=== PATIENT | female | born 1945 | race Caucasian/White ===

== ENCOUNTER → 2022-08-24 14:30 | Outpatient (CLI) | payer MEDICARE, SELFPAY | PROVIDERS: Visit Provider Nurse Practitioner Family | DX: M79.671 Pain in right foot (principal); M79.674 Pain in right toe(s) | CPT/HCPCS: 87102; 87206; 87220 ==

== ENCOUNTER → 2022-08-29 14:02 | Outpatient (CLI) | payer MEDICARE, SELFPAY ==
--- NOTE | 2022-08-29 14:13 | US_ITS ---
FINAL REPORT CLINICAL HISTORY: Decreased pulses in lower extremities. Patient has dementia and had limited cooperation. We were only able to acquire VPR's at the ankle level and pressures at ankle and calves bilaterally. Patient demanded we stop so all testing was ceased. FINDINGS: LOWER EXTREMITY SEGMENTAL PRESSURE MEASUREMENTS Pressure indices are as follows: RIGHT LOWER EXTREMITY: Thigh: Not measured at request of patient. Calf: 1.1 Ankle, posterior tibial artery: 1.0 Ankle, dorsalis pedis: 1.0 Toe: 0.81 Comments: 1.0 LEFT LOWER EXTREMITY: Thigh: Not measured at request of patient. Calf: 1.0 Ankle, posterior tibial artery: 1.0 Ankle, dorsalis pedis: 0.92 Toe: 0.83 Comments: 1.0 Reviewed, Interpreted and Dictated by Donovan Santamaria MD Transcribed by Lorelei Liz Authenticated and [facility]
== END ==
LOC: RT 14:08
PROVIDERS: Visit Provider Nurse Practitioner Family
DX: R09.89 Other specified symptoms and signs involving the circulatory and respiratory systems (principal)
CPT/HCPCS: 93923

== ENCOUNTER 2023-08-20 14:02 | Inpatient (IN) | payer MEDICARE, SELFPAY ==
[2023-08-20 14:14] VITALS: PULSE 90; RESP 20; O2SAT 90; BMI 25.8
--- NOTE | 2023-08-20 14:15 | CT_ITS ---
PROCEDURE INFORMATION: Exam: CT Pelvis Without Contrast; Skeletal Exam date and time: 08/20/2023 2:55 PM Age: 77 years old Clinical indication: Injury or trauma; Fall; Other: Pain; Additional info: Fall, pain in right hip. Patient AMS and unable to move or communicate TECHNIQUE: Imaging protocol: Computed tomography of the pelvis without contrast. Exam focused on the skeleton. Radiation optimization: All CT scans at this facility use at least one of these dose optimization techniques: automated exposure control; mA and/or kV adjustment per patient size (includes targeted exams where dose is matched to clinical indication); or iterative reconstruction. COMPARISON: CT BONY PELVIS 08/20/2023 2:55 PM FINDINGS: Intestine: The rectum is distended 8.4 cm with fecal material consistent with fecal impaction. Urinary bladder: Harper catheter in the bladder Bones/joints: Compression screw in the left femoral neck. Intramedullary chris in the left femur. Contour abnormality in the left inferior pubic ramus (series 5, image 98). Findings consistent with acute nondisplaced fracture.. Displaced subcapital femoral neck fracture of the right hip. Soft tissues: Unremarkable. IMPRESSION: 1. Contour abnormality in the left inferior pubic ramus (series 5, image 98). Findings consistent with acute nondisplaced fracture.. 2. Displaced subcapital femoral neck fracture of the right hip. 3. The rectum is distended 8.4 cm with fecal material consistent with fecal impaction.
--- NOTE | 2023-08-20 14:15 | ED_ITS ---
<Statement entered by Lefty Keller MD - 08/23/23 23:01> I was consulted by the FERNANDO, and we discussed the complexity of the problems being addressed. I approved the treatment and management plan for this patient's care in the emergency department, thus performing a substantive portion of the medical decision making. Lefty Keller MD, LAINE, FACEP Discharge Plan Disposition Patient Disposition: Admitted Condition: Good Prescriptions Prescriptions: No Action Eliquis 5 mg tablet 5 mg PO Patient Comments: TAKE 1 TABLET BY MOUTH TWICE DAILY FOR 30 DAYS furosemide 40 mg tablet PO Patient Comments: TAKE 1 TABLET BY MOUTH ONCE DAILY FOR 30 DAYS cyanocobalamin (vitamin B-12) 1,000 mcg tablet PO Patient Comments: TAKE 1 TABLET BY MOUTH ONCE DAILY spironolactone 25 mg tablet PO Patient Comments: TAKE 1 TABLET BY MOUTH ONCE DAILY FOR 30 DAYS potassium chloride 20 mEq tablet,ER particles/crystals PO Patient Comments: TAKE 1 TABLET BY MOUTH ONCE DAILY WITH FOOD FOR 30 DAYS lansoprazole 30 mg capsule,delayed release(DR/EC) PO Patient Comments: TAKE 1 CAPSULE BY MOUTH ONCE DAILY BEFORE A MEAL FOR 30 DAYS mirtazapine 15 mg tablet PO Patient Comments: TAKE 1 TABLET BY MOUTH ONCE DAILY FOR 30 DAYS oxycodone 5 mg tablet PO Patient Comments: TAKE 1 TABLET BY MOUTH EVERY 6 HOURS NEEDED Referrals Follow up/Referrals: Lonnie Joyner MD [Primary Care Provider] - See instructions Clinical Impressions Clinical Impression: Closed displaced fracture of right femoral neck, Acute hypoxemic respiratory failure Urinary tract infectious disease Qualifiers: Urinary tract infection type: site unspecified Hematuria presence: with hematuria Qualified Code(s): N39.0 - Urinary tract infection, site not specified Discharge ED Provider: Lefty Keller General Adult HPI General Chief complaint: Fall Stated complaint: Rt Hip Pain Time Seen by Provider: 08/20/23 14:06 History of Present Illness HPI narrative: Patient presents via EMS for reported fall. Unfortunately patient has dementia and is a poor historian thus all of the information so far comes from EMS. Reportedly she fell twice yesterday after the second time she injured her right hip. No reports of pain or trauma anywhere else. She did not lose consciousness. Await discussion with family for actual report of events. After son arrived who is her power of workers compensation defense attorney we had interactive discussion regarding events. Patient apparently has a sweet in their home and occasionally forgets to use her walker due to her dementia. She was inside her suite and it was an unwitnessed fall however [id number] arrived immediately after after she heard a thump on the floor. She found patient sitting on her bottom next to her bed with her back against a nightstand. She was unable to get her vertical by herself and son arrived shortly thereafter to assist her back to her lift chair where she spends her nights and where she sleeps. She initially had no complaints. However when they came to get her ready for yazidism this morning she had a lot of pain when attempting to move her right lower extremity thus EMS was called and hence her presentation here. She is a DNR/DNI Related Data Home Medications Medication Instructions Recorded Confirmed apixaban 5 mg tablet (Eliquis) 5 mg PO 12/01/22 12/01/22 cyanocobalamin (vitamin B-12) mcg PO 12/01/22 12/01/22 1,000 mcg tablet furosemide 40 mg tablet mg PO 12/01/22 12/01/22 lansoprazole 30 mg capsule,delayed mg PO 12/01/22 12/01/22 release mirtazapine 15 mg tablet mg PO 12/01/22 12/01/22 oxycodone 5 mg tablet mg PO 12/01/22 12/01/22 potassium chloride 20 mEq meq PO 12/01/22 12/01/22 tablet,extended release(part/cryst) spironolactone 25 mg tablet mg PO 12/01/22 12/01/22 Allergies Allergy/AdvReac Type Severity Reaction Status Date / Time No Known Allergies Allergy Verified 12/01/22 14:08 [facility] Disclaimer: The information contained in this section may have been updated after the patient was seen, as this information can be updated by other users. Medical History (Updated 08/20/23 @ 15:24 by WYATT Harrison) Onychomycosis Back pain with history of spinal surgery Surgical History History of surgery on wrist History of hip surgery Social History Smoking Status: Never smoker alcohol intake: never current occupational status: disabled Travel in the last 8 weeks: None ROS Obtained: Yes Systems reviewed as appropriate & no additional complaints except as documented Physical Exam General General appearance: alert (Pleasantly confused) and in no apparent distress Head Head exam: atraumatic, normal inspection and other (Patient has seborrhea in her hairline) Eye Eye exam: Present normal appearance, PERRL and EOMI ENT ENT exam: Present normal oropharynx and mucous membranes moist Neck Neck exam: Present normal inspection, full ROM and trachea midline; Absent tenderness Chest Chest inspection: Present normal inspection and symmetric chest wall rise; Absent tenderness Respiratory Respiratory exam: Present normal lung sounds bilaterally; Absent respiratory distress or wheezes Cardiovascular Cardiovascular exam: Present normal rhythm, tachycardia, normal heart sounds, +S1 and +S2 Abdominal Exam Abdominal exam: Present soft and normal bowel sounds; Absent tenderness, guarding, rebound or rigidity Extremities Exam Extremities exam: Present normal inspection (Patient has foreshortening and internal rotation at the right hip. She has brisk pulses distally and neurovascularly intact.) and tenderness (Right hip) Back Exam Back exam: Present normal inspection and full ROM; Absent tenderness or vertebral tenderness Neurological Exam Neurological exam: Present alert (Alert but pleasantly confused) and CN II-XII intact Skin Skin exam: Present intact (Patient has a small ulcer approximately T2-T3 that does not appear to be erythematous nor purulent and was covered with a bandage on arrival. Patient also has some skin breakdown around the sacrum and some erythema with wet skin) Other Other exam information: Patient covered in urine from adult diaper all the way to her bra. Medical Decision Making Medical Records Medical records reviewed: Yes I reviewed the patient's medical records. Hoang Inquiry Pt receiving controlled substance: No Vital Signs: 08/20/23 14:14 Pulse Rate [Right Brachial] 90 Respiratory Rate 20 02 Sat by Pulse Oximetry 90 L Oxygen Delivery Method Room Air Lab Data Lab results reviewed: Yes I reviewed the patient's lab results. Lab Results 08/20/23 14:00: WBC 21.5 H*, RBC 5.24, Hgb 16.4 H, Hct 48.4 H, MCV 92.4, MCH 31.2, MCHC 33.8, RDW 14.6, Plt Count 356, MPV 8.5, Neut % (Auto) 90.4 H, Lymph % (Auto) 5.2 L, [place] % (Auto) 3.8, Eos % (Auto) 0.2, Baso % (Auto) 0.4, Neut # (Auto) 19.5 H, Lymph # (Auto) 1.1, [place] # (Auto) 0.8, Eos # (Auto) 0.0, Baso # (Auto) 0.1, Total Counted 100, Neutrophils % (Manual) 87 H, Lymphocytes % (Manual) 9 L, Monocytes % (Manual) 4, Platelet Estimate Normal, RBC Morphology Normal 08/20/23 14:20: Urine Color Yellow, Urine Appearance Clear, Urine pH 6.0, Ur Specific [place] >= 1.030, Urine Protein Trace, Urine Glucose (UA) Negative, Urine Ketones Negative, Urine Blood Trace-i, Urine Nitrate Negative, Urine Bilirubin Negative, Urine Urobilinogen 0.2, Ur Leukocyte Esterase 1+ A, Urine RBC Occasional, Urine WBC 20-50, Ur Squamous Epith Cells 5-10, Urine Bacteria 3+ 08/20/23 14:32: Sodium 137, Potassium 3.3 L, Chloride 105, Carbon Dioxide 23, Anion Gap 12.3, BUN 24 H, Creatinine 0.80, Estimated Creat Clear 56, Estimated GFR 70, Est GFR ( Amer) 85, Glucose 173 H, Calcium 9.4, Magnesium 2.0, Total Bilirubin 0.9, AST 126 H, ALT 133 H, Alkaline Phosphatase 130 H, Total Creatine Kinase 132, Total Protein 7.2, Albumin 3.9, Globulin 3.3 H, Albumin/Globulin Ratio 1.2 08/20/23 14:00 08/20/23 14:32 Orders (Tests/Meds): ED MEDICATIONS Generic Name Dose Route Start Last Admin Trade Name Freq PRN Reason Stop Dose Admin Ceftriaxone Sodium 1 gm/ 50 mls @ 100 mls/hr 08/20/23 15:15 Sodium Chloride IV 08/30/23 15:14 Q24H ELAINE Sodium Chloride 500 mls @ 999 mls/hr 08/20/23 15:16 Sod Chlor 0.9% 1000ml Bag IV 08/20/23 15:46 .Q31M ONE Discontinued Medications Generic Name Dose Route Start Last Admin Trade Name Freq PRN Reason Stop Dose Admin Acetaminophen 1,000 mg 08/20/23 14:15 08/20/23 14:46 Acetaminophen 1,000mg/100ml Vial IV 08/20/23 14:16 1,000 mg ONCE ONE Administration Lactated Ringer's 1,000 mls @ 999 mls/hr 08/20/23 14:15 08/20/23 15:14 Lactated Ringer's 1000 Ml Bag IV 08/20/23 15:15 Not Given .Q1H1M ONE Sodium Chloride 500 mls @ 999 mls/hr 08/20/23 15:09 Sod Chlor 0.9% 1000ml Bag IV 08/20/23 15:39 .Q31M ONE Ketorolac Tromethamine 15 mg 08/20/23 14:15 08/20/23 14:46 Ketorolac 30mg/Ml Vial IV 08/20/23 14:16 15 mg ONCE ONE Administration Ondansetron HCl 4 mg 08/20/23 14:15 08/20/23 14:46 Ondansetron 4mg/2ml Vial IV 08/20/23 14:16 4 mg ONCE ONE Administration ORDERS Category Date Time Status CT bony pelvis Stat Cat Scan 08/20/23 14:15 Taken Hip XR right minimum 2 views [XR hip RT 2-3V w/pelvis] Exams 08/20/23 14:18 Taken Stat XR femur RT 2V Stat Exams 08/20/23 14:18 Taken CBC w/Auto Diff [Complete Blood Count Auto Diff] Stat Lab 08/20/23 14:00 Completed CK [Creatine Kinase] Stat Lab 08/20/23 14:32 Completed CMP [Comprehensive Metabolic Panel] Stat Lab 08/20/23 14:32 Completed INR [Prothrombin Time INR] Stat Lab 08/20/23 14:32 Received Magnesium Stat Lab 08/20/23 14:32 Completed UA [Urinalysis and Microscopic] Stat Lab 08/20/23 14:20 Completed Urine Culture Stat Micro 08/20/23 14:20 Received Medical Decision Narrative: In summary patient is a 77-year-old female who presents to the emergency department for evaluation of right hip injury. Patient is on Eliquis for previous PE however she has not been consistent with her medicine and it is believed that she has not had a today or yesterday. Patient is normotensive tachycardic on arrival upon arrival, but afebrile. Physical exam is remarkable for an internally rotated and foreshortened right lower extremity and pain with palpation of the right hip. She is neurovascular intact distally.. Differential diagnosis includes hip fracture versus femur fracture versus other pelvic fracture etc. Initial workup will be conducted with hematologic labs CT scan bony pelvis and femur x-ray urinalysis.. Initial interventions include Toradol Tylenol 1 L LR. Initial workup reviewed by me shows that she has an elevated white count however that is likely about both volume contraction and due to the fracture and my informal interpretation of her CT scan shows a femoral neck fracture and her urinalysis is positive for bacteriuria. Upon repeat evaluation patient is requiring supplemental O2 due to likely somnolence as she received 100 of fentanyl prehospital for her suspected fracture. Given this had interactive discussion with Dr. Phillips of orthopedics about patient management and who plans to pursue operative intervention and subsequently had an interactive discussion about patient management with hospitalist medicine who is agreed for admission for further evaluation and care. Critical Care Critical Care Time Critical Care Time: No
--- NOTE | 2023-08-20 14:18 | XR_ITS ---
PROCEDURE INFORMATION: Exam: XR Right Femur Exam date and time: 08/20/2023 2:55 PM Age: 77 years old Clinical indication: Pain and injury or trauma; Fall; Hip; Right; Additional info: Fall, pain in right hip. Patient AMS and unable to move or communicate TECHNIQUE: Imaging protocol: Radiologic exam of the right femur. Views: 2 views. COMPARISON: CR XR HIP RT 2-3V W/PELVIS 08/20/2023 2:55 PM FINDINGS: Bones/joints: Displaced subcapital femoral neck fracture of the right hip.. Degenerative changes in the right hip . Osteopenia Degenerative changes in the right knee Soft tissues: Unremarkable. IMPRESSION: Displaced subcapital femoral neck fracture of the right hip..
--- NOTE | 2023-08-20 14:18 | XR_ITS ---
PROCEDURE INFORMATION: Exam: XR Right Hip Exam date and time: 08/20/2023 2:55 PM Age: 77 years old Clinical indication: Pain and injury or trauma; Fall; Hip pain; Right hip; Additional info: Fall, pain in right hip. Patient AMS and unable to move or communicate TECHNIQUE: Imaging protocol: Radiologic exam of the right hip. Views: 2 or 3 views hip with pelvis when performed. COMPARISON: CR XR HIP RT 2-3V W/PELVIS 08/20/2023 2:55 PM FINDINGS: Bones/joints: Displaced right subcapital femoral neck fracture.. The fracture in the left inferior pubic ramus is not seen on this study. Compression screw in the left hip. Intramedullary chris in the left femur. Soft tissues: Unremarkable. IMPRESSION: 1. Displaced right subcapital femoral neck fracture.. 2. The fracture in the left inferior pubic ramus is not seen on this study. 3. Compression screw in the left hip. Intramedullary chris in the left femur.
--- NOTE | 2023-08-20 14:23 | ECG_ITS ---
APPROVED REPORT Exam: Resting ECG HR:103 bpm ECG Measurements Heart Rate 103 AXES RI 134 P -7 QRSd 92 QRS 122 QT 349 T 32 QTc 408 Conclusion SINUS TACHYCARDIA LEFT ATRIAL ENLARGEMENT [-0.15mV P-WAVE IN V1/V2] INCOMPLETE RIGHT BUNDLE BRANCH BLOCK [90+ ms QRS DURATION, TERMINAL R IN V1/V2, 40+ ms S IN I/aVL/V4/V5/V6] POSSIBLE RIGHT VENTRICULAR HYPERTROPHY [SOME/ALL OF: PROMINENT R IN V1, LATE TRANSITION, RAD, ADALID, SSS] NONSPECIFIC ST & T-WAVE ABNORMALITY ABNORMAL ECG Electronically signed by : HEIDI WRIGHT, 08/20/2023 15:58:42
[2023-08-20 14:27] LABS: Microscopic, Urine URINE MICROSCOPIC (MICROSCOPIC)
[2023-08-20 14:29] LABS: Appearance,Urine CLEAR (Clear); Bilirubin,Urine Negative (Negative); Blood, Urine TRACE-I (Negative); Color,Urine YELLOW (Yellow); Glucose,Urine (UA) Negative (Negative); Ketones,Urine Negative (Negative); Leukocyte Esterase,Urine 1+ (Negative); Nitrate,Urine Negative (Negative); Protein,Urine TRACE (Negative); Specific Gravity, Urine >= 1.030 (1.005-1.030); Urobilinogen,Urine 0.2 EU/dl (0.2)
[2023-08-20 14:29] LABS: Basophils # 0.1 K/mm3 (0-0.2); Basophils % 0.4 % (0.1-2.0); Eosinophils % 0.2 % (0.1-12.0); Hematocrit 48.4 % (37.0-47.0); Hemoglobin 16.4 g/dL (12.2-16.2); Lymphocytes # 1.1 K/mm3 (0.7-4.5); Lymphocytes % 5.2 % (10-50); Mean Corpuscular HGB Conc 33.8 g/dL (31.8-35.4); Mean Corpuscular Hemoglobin 31.2 pg (27.0-31.2); Mean Corpuscular Volume 92.4 fl (81-99); Mean Platelet Volume 8.5 fl (7.4-10.4); Monocytes # 0.8 K/mm3 (0.1-1.0); Monocytes % 3.8 % (1.7-9.3); Neutrophils # 19.5 K/mm3 (1.8-7.8); Neutrophils % 90.4 % (37.0-80.0); Platelet Count 356 K/mm3 (142-424); Red Blood Count 5.24 M/mm3 (4.20-5.40); Red Cell Distribution Width 14.6 % (11.5-17.5); White Blood Count 21.5 K/mm3 (4.8-10.8)
[2023-08-20 14:35] LABS: MANUAL DIFFERENTIAL MANUAL DIFFERENTIAL (MANUAL DIFF)
[2023-08-20 14:46] LABS: Lymphocytes % 9 % (10-50); Monocytes % 4 % (2-9); Neutrophils % 87 % (42-76); Total Cells Counted 100
[2023-08-20] MEDS: ACETAMINOPHEN 1,000MG/100ML VIAL 1000 MG IV (14:46)
[2023-08-20] MEDS: ONDANSETRON 4MG/2ML VIAL 4 MG IV (14:46)
[2023-08-20] MEDS: KETOROLAC 30MG/ML VIAL 15 MG IV (14:46)
[2023-08-20 14:47] LABS: Platelet Estimate Normal; RBC Morphology Normal
[2023-08-20 14:50] LABS: Chloride 105 mmol/L (98-107); Potassium 3.3 mmoL/L (3.5-5.1); Sodium 137 mmol/L (136-145)
[2023-08-20 14:52] LABS: Alanine Aminotransferase 133 U/L (12-78); Alkaline Phosphatase 130 U/L (38-126); Anion Gap 12.3 mEq/L (5-15); Aspartate Amino Transferase 126 U/L (14-36); Bilirubin,Total 0.9 mg/dl (0.2-1.3); Blood Urea Nitrogen 24 mg/dl (7-17); Carbon Dioxide 23 mmol/L (22.0-30.0); Creatine Kinase 132 U/L (30-135); Creatinine Clearance Estimated 56 mL/min (50-200); Estimated Glomerular Filt Rate 70 ml/min (>60); GFR (African American) 85 ML/MIN (>60)
[2023-08-20 14:53] LABS: Albumin Level 3.9 g/dl (3.5-5.0); Albumin/Globulin Ratio 1.2 (1.1-1.8); Calcium 9.4 mg/dl (8.4-10.2); Globulin 3.3 g/dL (1.3-3.2); Glucose 173 mg/dl (74-100); Total Protein,Serum 7.2 g/dl (6.3-8.2)
[2023-08-20 14:56] LABS: INR 1.04 (0.9-1.1); Prothrombin Time 11.6 seconds (10.1-12.5)
[2023-08-20 15:03] LABS: Bacteria,Urine 3+ /lpf; RBC,Urine Occasional #/hpf (0-3); WBC,Urine 20-50 #/hpf (0-3)
--- NOTE | 2023-08-20 15:20 | PC.NURSE ---
Roderick Morgan PA-C s/w Dr. Phillips for an ortho consult
--- NOTE | 2023-08-20 15:25 | PC.NURSE ---
Roderick Morgan PA-C s/w Dr. Galo for admission
[2023-08-20] MEDS: 0.9 % SODIUM CHLORIDE 1000ML 500 ML 999 ML IV (15:30)
[2023-08-20] MEDS: CEFTRIAXONE SODIUM 1 GM in 0.9 % SODIUM CHLORIDE 50 ML IV (15:30)
--- NOTE | 2023-08-20 15:30 | PC.NURSE ---
supervisor tree trimming notified for beds assignment.
--- NOTE | 2023-08-20 15:32 | XR_ITS ---
PROCEDURE INFORMATION: Exam: XR Chest Exam date and time: 08/20/2023 3:46 PM Age: 77 years old Clinical indication: Pain; Angina pectoris; Additional info: Leukocytosis TECHNIQUE: Imaging protocol: Radiologic exam of the chest. Views: 1 view. COMPARISON: No relevant prior studies available. FINDINGS: Lungs: Unremarkable. No consolidation. Pleural spaces: Unremarkable. No pleural effusion. No pneumothorax. Heart/Mediastinum: Unremarkable. No cardiomegaly. Bones/joints: Unremarkable. IMPRESSION: No acute findings.
[2023-08-20 15:45] VITALS: BP 127/77; PULSE 94; RESP 16; TEMP 37.2; O2SAT 95
--- NOTE | 2023-08-20 15:52 | P.HP_ITS ---
History of Present Illness *Admission Date: 08/20/23 *Reason for visit:: Right hip pain *History of present illness: This is a 77-year-old female that presents to [facility] emergency department after falling at home and now with right hip pain. She is accompanied by her son Dimitrios. Dimitrios reports the patient has advanced dementia and lives in their home. She typically ambulates with a walker and describes previous left hip fracture. She is chronically on Eliquis for pulmonary embolus. He reports the patient was ambulating in her room without her walker and fell with identified right hip concerns. In the ED hip x-rays identified right hip fracture with subsequent CT of the pelvis performed. Her labs identified a leukocytosis and her urinalysis was abnormal. She was started on IV Rocephin. Currently the patient denies pain and her son reports that she is at baseline. [facility] Medical History (Updated 08/20/23 @ 17:25 by Rigoberto Galo MD) Advanced dementia Pulmonary embolus Surgical History (Updated 08/20/23 @ 17:19 by Rigoberto Galo MD) Status post Vaibhav fundoplication S/P lumbar spinal fusion Status post closed fracture of left hip S/P wrist surgery Family History (Updated 08/20/23 @ 17:20 by Rigoberto Galo MD) Father Hip fracture Mother Coronary artery disease Social History Smoking Status: Never smoker alcohol intake: never current occupational status: disabled Travel in the last 8 weeks: None Review of Systems Review of Systems Review of systems:: unable to obtain Meds Home Medications and Allergies Home Medications Medication Instructions Recorded Confirmed Type apixaban 5 mg tablet (Eliquis) 5 mg PO 12/01/22 12/01/22 History cyanocobalamin (vitamin B-12) mcg PO 12/01/22 12/01/22 History 1,000 mcg tablet furosemide 40 mg tablet mg PO 12/01/22 12/01/22 History lansoprazole 30 mg capsule,delayed mg PO 12/01/22 12/01/22 History release mirtazapine 15 mg tablet mg PO 12/01/22 12/01/22 History oxycodone 5 mg tablet mg PO 12/01/22 12/01/22 History potassium chloride 20 mEq meq PO 12/01/22 12/01/22 History tablet,extended release(part/cryst) spironolactone 25 mg tablet mg PO 12/01/22 12/01/22 History New Prescriptions to Start Prescriptions: Allergies Allergy/AdvReac Type Severity Reaction Status Date / Time Penicillins Allergy Verified 08/20/23 15:41 Exam Data for Last 24 hours Vital signs and Labs for Last 24 Hours: Temp Pulse Resp BP Pulse Ox O2 Del Method 99 F 94 H 16 127/77 90 L Room Air 08/20/23 15:45 08/20/23 15:45 08/20/23 15:45 08/20/23 15:45 08/20/23 14:14 08/20/23 15:45 Laboratory Results - last 24 hr 08/20/23 14:00: WBC 21.5 H*, RBC 5.24, Hgb 16.4 H, Hct 48.4 H, MCV 92.4, MCH 31.2, MCHC 33.8, RDW 14.6, Plt Count 356, MPV 8.5, Neut % (Auto) 90.4 H, Lymph % (Auto) 5.2 L, [place] % (Auto) 3.8, Eos % (Auto) 0.2, Baso % (Auto) 0.4, Neut # (Auto) 19.5 H, Lymph # (Auto) 1.1, [place] # (Auto) 0.8, Eos # (Auto) 0.0, Baso # (Auto) 0.1, Total Counted 100, Neutrophils % (Manual) 87 H, Lymphocytes % (Manual) 9 L, Monocytes % (Manual) 4, Platelet Estimate Normal, RBC Morphology Normal 08/20/23 14:20: Urine Color Yellow, Urine Appearance Clear, Urine pH 6.0, Ur Specific [place] >= 1.030, Urine Protein Trace, Urine Glucose (UA) Negative, Urine Ketones Negative, Urine Blood Trace-i, Urine Nitrate Negative, Urine Bilirubin Negative, Urine Urobilinogen 0.2, Ur Leukocyte Esterase 1+ A, Urine RBC Occasional, Urine WBC 20-50, Ur Squamous Epith Cells 5-10, Urine Bacteria 3+ 08/20/23 14:32: PT 11.6, INR 1.04, Sodium 137, Potassium 3.3 L, Chloride 105, Carbon Dioxide 23, Anion Gap 12.3, BUN 24 H, Creatinine 0.80, Estimated Creat Clear 56, Estimated GFR 70, Est GFR ( Amer) 85, Glucose 173 H, Calcium 9.4, Magnesium 2.0, Total Bilirubin 0.9, AST 126 H, ALT 133 H, Alkaline Phosphatase 130 H, Total Creatine Kinase 132, Total Protein 7.2, Albumin 3.9, Globulin 3.3 H, Albumin/Globulin Ratio 1.2 I & O for Last 24 hours: Intake & Output 08/17/23 08/18/23 08/19/23 08/20/23 23:59 23:59 23:59 23:59 Weight 72.575 kg Constitutional Constitutional: mild distress and cooperative *Routine HEENT Exam Head: Present normocephalic Eye: Present EOMI and PERRL ENT: Present mucous membranes moist *Routine Neck Exam Neck: Present trachea midline; Absent JVD or lymphadenopathy *Routine Respiratory Exam Respiratory: Present rhonchi, normal respiratory effort and symmetric chest movement *Routine Cardiovascular Exam Cardiovascular: Present RRR *Routine Abdominal Exam Abdominal: Present soft; Absent tenderness *Routine Rectal Exam Rectal:: deferred *Routine Genitalia Exam Genitalia:: deferred *Routine Extremities Exam Extremities: Present tenderness (Right hip); Absent edema or full ROM *Routine Skin Exam Skin: Present warm; Absent rash *Routine Neurological Exam Neurological: Present alert; Absent sensory deficit or motor deficit Routine Psychiatric Exam Psychiatric: Present cooperative Assessment and Plan *Assessment and plan (1) Closed displaced fracture of right femoral neck: Status: Acute Category: Medical Code(s): S72.001A - Fracture of unspecified part of neck of right femur, initial encounter for closed fracture (2) Advanced dementia: Status: Acute Qualifiers: Dementia type: Alzheimer's Alzheimer's disease onset: late onset Dementia behavioral or psychological symptom: without behavioral, psychotic, or mood disturbance or anxiety Qualified Code(s): G30.1 - Alzheimer's disease with late onset; F02.C0 - Dementia in other diseases classified elsewhere, severe, without behavioral disturbance, psychotic disturbance, mood disturbance, and anxiety Category: Medical Code(s): F03.C0 - Unspecified dementia, severe, without behavioral disturbance, psychotic disturbance, mood disturbance, and anxiety (3) UTI (urinary tract infection): Status: Acute Qualifiers: Urinary tract infection type: acute cystitis Hematuria presence: [facility] hematuria Qualified Code(s): N30.00 - Acute cystitis without hematuria Category: Medical Code(s): N39.0 - Urinary tract infection, site not specified Plan This is a 77-year-old female with advanced dementia who normally ambulates with a walker. She fell at home and she was brought to the ED for right hip pain. A previous left hip fracture with repair is noted. She has a history of pulmonary embolus and is chronically anticoagulated with Eliquis and her last dose was Saturday, August 19, 2023. Problems addressed as follows: Close displaced fracture of right femoral neck Orthopedic consultation Fall precautions ED hip x-rays with right hip fracture CT hip with right hip fracture Holding factor Xa inhibitor therapy N.p.o. at midnight prior to surgery Pain control Parenterally administered controlled substance for comfort care PT/OT consults postsurgical intervention Case management following for discharge planning Advanced dementia Fall precautions Routine nursing interaction Consent from family for surgery noted UTI ED CBC with leukocytoses ED urinalysis abnormal Urine culture pending IV Rocephin daily Trending labs and inflammatory markers The length of stay for this patient will be 2 midnights or greater due to above diagnoses.
[2023-08-20 16:00] VITALS: BP 152/57; PULSE 76; RESP 19; TEMP 36.7; O2SAT 93
[2023-08-20] MEDS: 0.9 % SODIUM CHLORIDE 1000ML 1,000 ML 100 ML IV ×2 (16:14→23:49)
[2023-08-20] MEDS: MORPHINE 2MG/ML SYRINGE 2 MG IV (16:14)
--- OUTSIDE RECORDS SUMMARY | 2023-08-20 16:29 | XMS_ITS ---
Author Name Jayro Light Address [address] [place] [address] Organization Unknown Address [address] [place] [id number] ALLERGIES AND ADVERSE REACTIONS No information ASSESSMENT No information CHIEF COMPLAINT No information MEDICATIONS No information OBJECTIVE DATA No information PHYSICAL EXAMINATION No information TREATMENT PLAN Planned Care Start Date Provider Encounter for Check-up [phone] JULIANO Joyner PROBLEMS No information RESULTS No information REVIEW OF SYSTEMS No information SUBJECTIVE DATA No information VITAL SIGNS No information
[2023-08-20 19:57] VITALS: BP 115/80; PULSE 94; RESP 18; TEMP 36.4; O2SAT 98
[2023-08-20] MEDS: POTASSIUM CHLORIDE 20MEQ TAB 40 MEQ PO (21:19)
[2023-08-20] MEDS: HEPARIN SODIUM 5,000 UNIT/ML VIAL 5000 UNIT SQ (21:19)
[2023-08-21 04:00] VITALS: BP 116/75; PULSE 87; RESP 16; TEMP 36.7; O2SAT 96; BMI 25.5
[2023-08-21 06:58] LABS: Basophils # 0.1 K/mm3 (0-0.2); Lymphocytes # 1.1 K/mm3 (0.7-4.5); Monocytes # 0.7 K/mm3 (0.1-1.0)
[2023-08-21 07:08] LABS: Chloride 111 mmol/L (98-107); Potassium 4.4 mmoL/L (3.5-5.1); Sodium 139 mmol/L (136-145)
[2023-08-21 07:15] LABS: Basophils % 0.3 % (0.1-2.0); Eosinophils # 0.1 K/mm3 (0.0-0.4); Eosinophils % 0.7 % (0.1-12.0); Lymphocytes % 6.6 % (10-50); Mean Corpuscular HGB Conc 32.7 g/dL (31.8-35.4); Mean Corpuscular Hemoglobin 30.7 pg (27.0-31.2); Mean Corpuscular Volume 93.7 fl (81-99); Mean Platelet Volume 8.6 fl (7.4-10.4); Monocytes % 4.4 % (1.7-9.3); Neutrophils # 14.3 K/mm3 (1.8-7.8); Neutrophils % 88.1 % (37.0-80.0); Platelet Count 272 K/mm3 (142-424); Red Cell Distribution Width 14.6 % (11.5-17.5); White Blood Count 16.3 K/mm3 (4.8-10.8)
[2023-08-21 07:16] LABS: Hemoglobin 14.4 g/dL (12.2-16.2)
[2023-08-21 07:18] LABS: MANUAL DIFFERENTIAL MANUAL DIFFERENTIAL (MANUAL DIFF)
[2023-08-21 07:42] LABS: Anion Gap 9.4 mEq/L (5-15); Blood Urea Nitrogen 23 mg/dl (7-17); Carbon Dioxide 23 mmol/L (22.0-30.0); Creatinine Clearance Estimated 55 mL/min (50-200); Estimated Glomerular Filt Rate 97 ml/min (>60); GFR (African American) 118 ML/MIN (>60); Glucose 132 mg/dl (74-100)
[2023-08-21 07:46] VITALS: BP 123/72; PULSE 95; RESP 16; TEMP 36.6; O2SAT 93
[2023-08-21 08:00] LABS: Procalcitonin 0.272 ng/mL (0.0-2.0)
--- NOTE | 2023-08-21 08:35 | ECG_ITS ---
APPROVED REPORT Exam: Resting ECG HR:107 bpm ECG Measurements Heart Rate 107 AXES NV 129 P 62 QRSd 90 QRS -56 QT 330 T -27 QTc 393 Conclusion SINUS TACHYCARDIA INFERIOR MYOCARDIAL INFARCTION , PROBABLY OLD [40+ ms Q WAVE AND/OR ST/T ABNORMALITY IN II/aVF] ABNORMAL ECG UNCONFIRMED REPORT Electronically signed by : Sarbjit Finney MD 08/23/2023 07:13:16
--- NOTE | 2023-08-21 08:41 | HMH.PHAINT1 ---
Pharmacy Intervention Comments: MEDICATION RECONCILIATION COMPLETE USING EXTERNAL PHARMACY FILL HISTORY.
[2023-08-21] MEDS: POTASSIUM CHLORIDE 20MEQ TAB 40 MEQ PO (09:03)
[2023-08-21] MEDS: PANTOPRAZOLE 40MG TABLET 40 MG PO (09:03)
[2023-08-21] MEDS: CEFTRIAXONE SODIUM 1 GM in 0.9 % SODIUM CHLORIDE 50 ML IV (09:03)
[2023-08-21] MEDS: HEPARIN SODIUM 5,000 UNIT/ML VIAL 5000 UNIT SQ (09:03)
--- NOTE | 2023-08-21 09:22 | CARE MANAGER ---
Current Medications Acetaminophen (Acetaminophen 325mg Tab) 1,000 mg PO Q6HP PRN PRN Reason: Fever or Mild Pain (1-3) Stop: 09/19/23 15:36 Heparin Sodium (Porcine) (Heparin Sodium 5,000 Unit/Ml Vial) 5,000 unit SQ BID [facility] Stop: 09/19/23 20:59 Last Admin: 08/21/23 09:03 Dose: 5,000 unit Sodium Chloride (Sod Chlor 0.9% 1000ml Bag) 1,000 mls @ 100 mls/hr IV .Q10H [facility] Stop: 09/19/23 15:44 Last Admin: 08/21/23 07:37 Dose: Not Given Ceftriaxone Sodium 1 gm/ (Sodium Chloride) 50 mls @ 100 mls/hr IV Q24H [facility] Stop: 08/30/23 08:59 Last Admin: 08/21/23 09:03 Dose: 100 mls/hr Morphine Sulfate (Morphine 2mg/Ml Syringe) 2 mg IV Q4HP PRN PRN Reason: Severe Pain (7-10) Stop: 09/19/23 15:36 Last Admin: 08/20/23 16:14 Dose: 2 mg Ondansetron HCl (Ondansetron 4mg/2ml Vial) 4 mg IV Q8HP PRN PRN Reason: Nausea Stop: 09/19/23 15:31 Pantoprazole Sodium (Pantoprazole 40mg Tablet) 40 mg PO DAILY [facility] Stop: 09/20/23 08:59 Last Admin: 08/21/23 09:03 Dose: 40 mg Sodium Chloride (Sodium Chloride 0.9% 10ml Flush Syringe) 10 ml IV NEEDED PRN PRN Reason: Maintain IV Site Stop: 09/19/23 15:36 Laboratory Tests 08/20/23 08/20/23 08/20/23 14:00 14:20 14:32 WBC 21.5 H* RBC 5.24 Hgb 16.4 H Hct 48.4 H MCV 92.4 MCH 31.2 MCHC 33.8 RDW 14.6 Plt Count 356 MPV 8.5 Neut % (Auto) 90.4 H Lymph % (Auto) 5.2 L [place] % (Auto) 3.8 Eos % (Auto) 0.2 Baso % (Auto) 0.4 Neut # (Auto) 19.5 H Lymph # (Auto) 1.1 [place] # (Auto) 0.8 Eos # (Auto) 0.0 Baso # (Auto) 0.1 Total Counted 100 Neutrophils % (Manual) 87 H Lymphocytes % (Manual) 9 L Monocytes % (Manual) 4 Platelet Estimate Normal RBC Morphology Normal PT 11.6 INR 1.04 Sodium 137 Potassium 3.3 L Chloride 105 Carbon Dioxide 23 Anion Gap 12.3 BUN 24 H Creatinine 0.80 Estimated Creat Clear 56 Estimated GFR 70 Est GFR ( Amer) 85 Glucose 173 H Calcium 9.4 Magnesium 2.0 Total Bilirubin 0.9 AST 126 H ALT 133 H Alkaline Phosphatase 130 H Total Creatine Kinase 132 Total Protein 7.2 Albumin 3.9 Globulin 3.3 H Albumin/Globulin Ratio 1.2 Procalcitonin Urine Color Yellow Urine Appearance Clear Urine pH 6.0 Ur Specific [place] >= 1.030 Urine Protein Trace Urine Glucose (UA) Negative Urine Ketones Negative Urine Blood Trace-i Urine Nitrate Negative Urine Bilirubin Negative Urine Urobilinogen 0.2 Ur Leukocyte Esterase 1+ A Urine RBC Occasional Urine WBC 20-50 Ur Squamous Epith Cells 5-10 Urine Bacteria 3+ 08/21/23 06:47 WBC 16.3 H RBC 4.70 Hgb 14.4 D Hct 44.0 MCV 93.7 MCH 30.7 MCHC 32.7 RDW 14.6 Plt Count 272 MPV 8.6 Neut % (Auto) 88.1 H Lymph % (Auto) 6.6 L [place] % (Auto) 4.4 Eos % (Auto) 0.7 Baso % (Auto) 0.3 Neut # (Auto) 14.3 H Lymph # (Auto) 1.1 [place] # (Auto) 0.7 Eos # (Auto) 0.1 Baso # (Auto) 0.1 Total Counted Neutrophils % (Manual) Lymphocytes % (Manual) Monocytes % (Manual) Platelet Estimate RBC Morphology PT INR Sodium 139 Potassium 4.4 D Chloride 111 H Carbon Dioxide 23 Anion Gap 9.4 BUN 23 H Creatinine 0.60 D Estimated Creat Clear 55 Estimated GFR 97 Est GFR ( Amer) 118 D Glucose 132 H D Calcium 9.0 Magnesium Total Bilirubin AST ALT Alkaline Phosphatase Total Creatine Kinase Total Protein Albumin Globulin Albumin/Globulin Ratio Procalcitonin 0.272 Urine Color Urine Appearance Urine pH Ur Specific [place] Urine Protein Urine Glucose (UA) Urine Ketones Urine Blood Urine Nitrate Urine Bilirubin Urine Urobilinogen Ur Leukocyte Esterase Urine RBC Urine WBC Ur Squamous Epith Cells Urine Bacteria Vitals 08/20/23 14:14 08/20/23 15:45 08/20/23 16:00 Temperature 99 F 98.0 F Pulse Rate 94 H Pulse Rate [Right Brachial] 90 76 Respiratory Rate 20 16 19 Blood Pressure 127/77 Blood Pressure [Right Arm] 152/57 H 02 Sat by Pulse Oximetry 90 L 93 L Oxygen Delivery Method Room Air Room Air Nasal Cannula Oxygen Flow Rate (LPM) 2 08/20/23 17:00 08/20/23 18:40 08/20/23 18:43 Temperature Pulse Rate Pulse Rate [Right Brachial] Respiratory Rate Blood Pressure Blood Pressure [Right Arm] 02 Sat by Pulse Oximetry Oxygen Delivery Method Room Air Nasal Cannula Nasal Cannula Oxygen Flow Rate (LPM) 2 2 08/20/23 19:57 08/20/23 20:00 08/20/23 21:00 Temperature 97.5 F L Pulse Rate Pulse Rate [Right Brachial] 94 H Respiratory Rate 18 Blood Pressure Blood Pressure [Right Arm] 115/80 02 Sat by Pulse Oximetry 98 Oxygen Delivery Method Nasal Cannula Nasal Cannula Nasal Cannula Oxygen Flow Rate (LPM) 2 2 2 08/20/23 23:00 08/21/23 01:00 08/21/23 03:00 Temperature Pulse Rate Pulse Rate [Right Brachial] Respiratory Rate Blood Pressure Blood Pressure [Right Arm] 02 Sat by Pulse Oximetry Oxygen Delivery Method Nasal Cannula Nasal Cannula Nasal Cannula Oxygen Flow Rate (LPM) 2 2 2 08/21/23 04:00 08/21/23 05:00 08/21/23 07:00 Temperature 98.0 F Pulse Rate Pulse Rate [Right Brachial] 87 Respiratory Rate 16 Blood Pressure Blood Pressure [Right Arm] 116/75 02 Sat by Pulse Oximetry 96 Oxygen Delivery Method Nasal Cannula Nasal Cannula Nasal Cannula Oxygen Flow Rate (LPM) 2 2 2 08/21/23 07:46 Temperature 98 F Pulse Rate Pulse Rate [Right Brachial] 95 H Respiratory Rate 16 Blood Pressure Blood Pressure [Right Arm] 123/72 02 Sat by Pulse Oximetry 93 L Oxygen Delivery Method Nasal Cannula Oxygen Flow Rate (LPM) 2
--- NOTE | 2023-08-21 09:25 | P.CONS_ITS ---
History of Present Illness *Admission Date: 08/20/23 *History of present illness: This is a 77-year-old female that presents to [facility] emergency department after falling at home and now with right hip pain. She is accompanied by her son Dimitrios. Dimitrios reports the patient has advanced dementia and lives in their home. She typically ambulates with a walker and describes previous left hip fracture. She is chronically on Eliquis for pulmonary embolus. He reports the patient was ambulating in her room without her walker and fell with identified right hip concerns. In the ED hip x-rays identified right hip fracture with subsequent CT of the pelvis performed. Her labs identified a leukocytosis and her urinalysis was abnormal. She was started on IV Rocephin. Orthopedics consulted for definitive treatment of right hip fracture. [facility] Disclaimer: The information contained in this section may have been updated after the patient was seen, as this information can be updated by other users. Medical History (Updated 08/20/23 @ 17:25 by Rigoberto Galo MD) Advanced dementia Pulmonary embolus Surgical History (Updated 08/20/23 @ 17:19 by Rigoberto Galo MD) Status post Vaibhav fundoplication S/P lumbar spinal fusion Status post closed fracture of left hip S/P wrist surgery Family History (Updated 08/20/23 @ 17:20 by Rigoberto Galo MD) Father Hip fracture Mother Coronary artery disease Social History Smoking Status: Never smoker alcohol intake: never current occupational status: disabled Travel in the last 8 weeks: None Meds Home Medications and Allergies Home Medications Medication Instructions Recorded Confirmed Type apixaban 5 mg tablet (Eliquis) 5 mg PO BID 12/01/22 08/21/23 History furosemide 40 mg tablet 40 mg PO DAILY 12/01/22 08/21/23 History lansoprazole 30 mg capsule,delayed 30 mg PO AM 12/01/22 08/21/23 History release mirtazapine 15 mg tablet 15 mg PO HS 12/01/22 08/21/23 History potassium chloride 20 mEq 20 meq PO DAILY 12/01/22 08/21/23 History tablet,extended release(part/cryst) spironolactone 25 mg tablet 25 mg PO DAILY 12/01/22 08/21/23 History New Prescriptions to Start Prescriptions: Allergies Allergy/AdvReac Type Severity Reaction Status Date / Time Penicillins Allergy Verified 08/20/23 15:41 Ortho Exam (Inpt) Vital signs and Labs for Last 24 Hours: Temp Pulse Resp BP Pulse Ox O2 Del Method O2 Flow Rate 98 F 95 H 16 123/72 93 L Nasal Cannula 2 08/21/23 07:46 08/21/23 07:46 08/21/23 07:46 08/21/23 07:46 08/21/23 07:46 08/21/23 07:46 08/21/23 07:46 Laboratory Results - last 24 hr 08/20/23 14:00: WBC 21.5 H*, RBC 5.24, Hgb 16.4 H, Hct 48.4 H, MCV 92.4, MCH 31.2, MCHC 33.8, RDW 14.6, Plt Count 356, MPV 8.5, Neut % (Auto) 90.4 H, Lymph % (Auto) 5.2 L, [place] % (Auto) 3.8, Eos % (Auto) 0.2, Baso % (Auto) 0.4, Neut # (Auto) 19.5 H, Lymph # (Auto) 1.1, [place] # (Auto) 0.8, Eos # (Auto) 0.0, Baso # (Auto) 0.1, Total Counted 100, Neutrophils % (Manual) 87 H, Lymphocytes % (Manual) 9 L, Monocytes % (Manual) 4, Platelet Estimate Normal, RBC Morphology Normal 08/20/23 14:20: Urine Color Yellow, Urine Appearance Clear, Urine pH 6.0, Ur Specific [place] >= 1.030, Urine Protein Trace, Urine Glucose (UA) Negative, Urine Ketones Negative, Urine Blood Trace-i, Urine Nitrate Negative, Urine Bilirubin Negative, Urine Urobilinogen 0.2, Ur Leukocyte Esterase 1+ A, Urine RBC Occasional, Urine WBC 20-50, Ur Squamous Epith Cells 5-10, Urine Bacteria 3+ 08/20/23 14:32: PT 11.6, INR 1.04, Sodium 137, Potassium 3.3 L, Chloride 105, Carbon Dioxide 23, Anion Gap 12.3, BUN 24 H, Creatinine 0.80, Estimated Creat Clear 56, Estimated GFR 70, Est GFR ( Amer) 85, Glucose 173 H, Calcium 9.4, Magnesium 2.0, Total Bilirubin 0.9, AST 126 H, ALT 133 H, Alkaline Phosphatase 130 H, Total Creatine Kinase 132, Total Protein 7.2, Albumin 3.9, G lobulin 3.3 H, Albumin/Globulin Ratio 1.2 08/21/23 06:47: WBC 16.3 H, RBC 4.70, Hgb 14.4 D, Hct 44.0, MCV 93.7, MCH 30.7, MCHC 32.7, RDW 14.6, Plt Count 272, MPV 8.6, Neut % (Auto) 88.1 H, Lymph % (Auto) 6.6 L, [place] % (Auto) 4.4, Eos % (Auto) 0.7, Baso % (Auto) 0.3, Neut # (Auto) 14.3 H, Lymph # (Auto) 1.1, [place] # (Auto) 0.7, Eos # (Auto) 0.1, Baso # (Auto) 0.1, Sodium 139, Potassium 4.4 D, Chloride 111 H, Carbon Dioxide 23, Anion Gap 9.4, BUN 23 H, Creatinine 0.60 D, Estimated Creat Clear 55, Estimated GFR 97, Est GFR ( Amer) 118 D, Glucose 132 H D, Calcium 9.0, Procalcitonin 0.272 I & O for Labs for Last 24 Hours: Intake & Output 08/18/23 08/19/23 08/20/23 08/21/23 23:59 23:59 23:59 23:59 Intake Total 240 / 240 540 / 540 Output Total 600 / 600 Balance 240 / -60 -60 / -60 Weight 160 lb 158 lb 14.4 oz Microbiology Reports for the Last 24 Hours: Microbiology 08/20/23 14:20 Urine,Clean Catch Urine Culture - Preliminary Additional findings:: Right hip: Shortened and externally rotated in the bed. Able to wiggle toes. Pain with any attempt for active motion of the right hip. X-rays and CT scan of the right hip show displaced femoral neck fracture. Results Labs 08/21/23 06:47 08/21/23 06:47 Labs: Abnormal lab results 08/20/23 08/20/23 08/20/23 Range/Units 14:00 14:20 14:32 WBC 21.5 H* (4.8-10.8) K/mm3 Hgb 16.4 H (12.2-16.2) g/dL Hct 48.4 H (37.0-47.0) % Neut % (Auto) 90.4 H (37.0-80.0) % Lymph % (Auto) 5.2 L (10-50) % Neut # (Auto) 19.5 H (1.8-7.8) K/mm3 Neutrophils % (Manual) 87 H (42-76) % Lymphocytes % (Manual) 9 L (10-50) % Potassium 3.3 L (3.5-5.1) mmoL/L Chloride (98-107) mmol/L BUN 24 H (7-17) mg/dl Glucose 173 H (74-100) mg/dl AST 126 H (14-36) U/L ALT 133 H (12-78) U/L Alkaline Phosphatase 130 H (38-126) U/L Globulin 3.3 H (1.3-3.2) g/dL Ur Leukocyte Esterase 1+ A (Negative) 08/21/23 Range/Units 06:47 WBC 16.3 H (4.8-10.8) K/mm3 Hgb (12.2-16.2) g/dL Hct (37.0-47.0) % Neut % (Auto) 88.1 H (37.0-80.0) % Lymph % (Auto) 6.6 L (10-50) % Neut # (Auto) 14.3 H (1.8-7.8) K/mm3 Neutrophils % (Manual) (42-76) % Lymphocytes % (Manual) (10-50) % Potassium (3.5-5.1) mmoL/L Chloride 111 H (98-107) mmol/L BUN 23 H (7-17) mg/dl Glucose 132 H D (74-100) mg/dl AST (14-36) U/L ALT (12-78) U/L Alkaline Phosphatase (38-126) U/L Globulin (1.3-3.2) g/dL Ur Leukocyte Esterase (Negative) H & H 08/20/23 08/21/23 Range/Units 14:00 06:47 Hgb 16.4 H 14.4 D (12.2-16.2) g/dL Hct 48.4 H 44.0 (37.0-47.0) % Coagulation 08/20/23 Range/Units 14:32 INR 1.04 (0.9-1.1) All other labs normal. Assessment and Plan *Assessment and plan (1) Closed displaced fracture of right femoral neck: Status: Acute Category: Medical Code(s): S72.001A - Fracture of unspecified part of neck of right femur, initial encounter for closed fracture Plan Patient has a displaced right femoral neck fracture. Operative intervention is indicated to allow for weightbearing on the right lower extremity. She has been on Eliquis. This is currently on hold. Care is complicated by underlying dementia. Plan for surgical intervention for hemiarthroplasty of the right hip. Will plan an early planned for Monday. Currently on treatment for UTI. PROPOSED SURGERY: Right hip hemiarthroplasty Will contact patient's son and review the risk and benefits of this indicated procedure. In order to allow her to weight-bear and become ambulatory surgical intervention is necessary for the right hip. We will hold the Eliquis for 48 hours and plan for surgical intervention on Monday.
[2023-08-21 10:58] LABS: Lymphocytes % 5 % (10-50); Monocytes % 4 % (2-9); Neutrophils % 90 % (42-76); Total Cells Counted 100
[2023-08-21 11:04] LABS: Platelet Estimate Normal; RBC Morphology Normal
[2023-08-21 14:47] VITALS: BMI 25.4
--- NOTE | 2023-08-21 15:05 | P.PN_ITS ---
Subjective *Date: 08/21/23 *Time: 15:12 Interval history: Patient doing well without acute complaints. Extremely demented and humming during interview with Dr. Horne. Appears disoriented to location/time. Medical Exam Vital signs and Labs for Last 24 Hours: Vital Signs Temp Pulse Pulse Resp BP BP Pulse Ox 08/21/23 14:58 08/21/23 13:00 08/21/23 11:00 08/21/23 09:00 08/21/23 09:00 08/21/23 07:46 98 F 95 H 16 123/72 93 L 08/21/23 07:00 08/21/23 05:00 08/21/23 04:00 98.0 F 87 16 116/75 96 08/21/23 03:00 08/21/23 01:00 08/20/23 23:00 08/20/23 21:00 08/20/23 20:00 08/20/23 19:57 97.5 F L 94 H 18 115/80 98 08/20/23 18:43 08/20/23 18:40 08/20/23 17:00 08/20/23 16:00 98.0 F 76 19 152/57 H 93 L 08/20/23 15:45 99 F 94 H 16 127/77 O2 Del Method O2 Flow Rate 08/21/23 14:58 Room Air 08/21/23 13:00 Room Air 08/21/23 11:00 Room Air 08/21/23 09:00 Room Air 08/21/23 09:00 Room Air 08/21/23 07:46 Nasal Cannula 2 08/21/23 07:00 Nasal Cannula 2 08/21/23 05:00 Nasal Cannula 2 08/21/23 04:00 Nasal Cannula 2 08/21/23 03:00 Nasal Cannula 2 08/21/23 01:00 Nasal Cannula 2 08/20/23 23:00 Nasal Cannula 2 08/20/23 21:00 Nasal Cannula 2 08/20/23 20:00 Nasal Cannula 2 08/20/23 19:57 Nasal Cannula 2 08/20/23 18:43 Nasal Cannula 2 08/20/23 18:40 Nasal Cannula 2 08/20/23 17:00 Room Air 08/20/23 16:00 Nasal Cannula 2 08/20/23 15:45 Room Air Intake and Output 08/20/23 08/21/23 08/21/23 23:59 07:59 15:59 Intake Total 240 / 240 540 / 540 Output Total 600 / 600 0 / 600 Balance 240 / -60 -600 / -60 540 / -60 Intake: Intake, Oral Amount 240 / 240 540 / 540 Output: Output, Urine Amount 600 / 600 0 / 600 Other: Number of Voids 1 0 Number of Unmeasured Voids 0 Weight 72.076 kg 72 kg Patient Weight 08/21/23 23:59 Weight 72 kg Laboratory Results - last 24 hr 08/20/23 14:32: PT 11.6, INR 1.04 08/21/23 06:47: WBC 16.3 H, RBC 4.70, Hgb 14.4 D, Hct 44.0, MCV 93.7, MCH 30.7, MCHC 32.7, RDW 14.6, Plt Count 272, MPV 8.6, Neut % (Auto) 88.1 H, Lymph % (Auto) 6.6 L, [place] % (Auto) 4.4, Eos % (Auto) 0.7, Baso % (Auto) 0.3, Neut # (A uto) 14.3 H, Lymph # (Auto) 1.1, [place] # (Auto) 0.7, Eos # (Auto) 0.1, Baso # (Auto) 0.1, Total Counted 100, Neutrophils % (Manual) 90 H, Band Neutrophils % 1.0, Lymphocytes % (Manual) 5 L, Monocytes % (Manual) 4, Platelet Estimate Normal, RBC Morphology Normal, Sodium 139, Potassium 4.4 D, Chloride 111 H, Carbon Dioxide 23, Anion Gap 9.4, BUN 23 H, Creatinine 0.60 D, Estimated Creat Clear 55, Estimated GFR 97, Est GFR ( Amer) 118 D, Glucose 132 H D, Calcium 9.0, Procalcitonin 0.272 I & O for Labs for Last 24 Hours: Intake & Output 08/18/23 08/19/23 08/20/23 08/21/23 23:59 23:59 23:59 23:59 Intake Total 240 / 240 540 / 540 Output Total 600 / 600 Balance 240 / -60 -60 / -60 Weight 72.575 kg 72 kg Microbiology Reports for the Last 24 Hours: Microbiology 08/20/23 14:20 Urine,Clean Catch Urine Culture - Preliminary Head: Present normocephalic ENT: Present normal exam Neck: Present normal inspection Respiratory: Present CTA bilaterally Cardiac: Present Reg Rate and Rhythm and Regular Rate GI: Present soft and normal bowel sounds Rectal (female): Present deferred (female): Present deferred Comment:: Right hip extremely painful with all range of motion exercises both passive and active Skin: Present intact and warm Assessment and Plan *Assessment and plan (1) Advanced dementia: Status: Acute Qualifiers: Alzheimer's disease onset: late onset Dementia behavioral or psychological symptom: without behavioral, psychotic, or mood disturbance or anxiety Dementia type: Alzheimer's Qualified Code(s): G30.1 - Alzheimer's disease with late onset; F02.C0 - Dementia in other diseases classified elsewhere, severe, without behavioral disturbance, psychotic disturbance, mood disturbance, and anxiety Category: Medical Code(s): F03.C0 - Unspecified dementia, severe, without behavioral disturbance, psychotic disturbance, mood disturbance, and anxiety (2) Closed displaced fracture of right femoral neck: Status: Acute Category: Medical Code(s): S72.001A - Fracture of unspecified part of neck of right femur, initial encounter for closed fracture (3) UTI (urinary tract infection): Status: Acute Qualifiers: Hematuria presence: without hematuria Urinary tract infection type: acute cystitis Qualified Code(s): N30.00 - Acute cystitis without hematuria Category: Medical Code(s): N39.0 - Urinary tract infection, site not specified Plan This is a 77-year-old female with advanced dementia who normally ambulates with a walker. She fell at home and she was brought to the ED for right hip pain. A previous left hip fracture with repair is noted. She has a history of pulmonary embolus and is chronically anticoagulated with Eliquis and her last dose was Saturday, August 19, 2023. Problems addressed as follows: Close displaced fracture of right femoral neck Orthopedic consultation -Truly appreciate orthopedic surgery's assistance! Scheduled for hip repair Monday. Make patient n.p.o. after midnight Monday. As needed pain meds. Holding Eliquis. PT/OT as tolerated. Consult case management for discharge planning. ED hip x-rays with right hip fracture CT hip with right hip fracture Advanced dementia Fall precautions Routine nursing interaction Consent from family for surgery noted UTI ED CBC with leukocytoses ED urinalysis abnormal Urine culture pending IV Rocephin daily Trending labs and inflammatory markers pulmonary embolus on Eliquis at home: -Eliquis currently on hold in preparation for right total hip repair on Monday. Start heparin drip to bridge. PPX heparin GTT CODE STATUS DNR FEN Cardiac The length of stay for this patient will be 2 midnights or greater due to above diagnoses.
--- NOTE | 2023-08-21 15:18 | P.CONPHA_ITS ---
[facility] Pharmacy Heparin Dosing Demographic Data Admission date:: 08/20/23 Date: 08/21/23 Time: 15:18 Allergies Allergy/AdvReac Type Severity Reaction Status Date / Time Penicillins Allergy Verified 08/20/23 15:41 Height: 1.68 m Weight: 72 kg Indication Medication therapy:: Heparin Current Indications:: MEDIUM DOSE PROTOCOL - PRE-OPERATIVE ANTICOAGULATION Current Active Problems (Updated 08/22/23 @ 15:20 by Gaston Martin MD) Pulmonary embolus (Chronic) Chronic anticoagulation (Chronic) Closed displaced fracture of right femoral neck (Acute) UTI (urinary tract infection) (Acute) Advanced dementia (Acute) Acute hypoxemic respiratory failure (Acute) Urinary tract infectious disease (Acute) CVA?: No Bleeding problem?: No Kidney disease?: No ND?: No Desired PTT range:: 50-75 seconds Comments:: BASELINE PTT: Labs Anticoagulation Lab Results:: 08/21/23 06:47 Hgb 14.4 D Hct 44.0 Plt Count 272 Monitoring Dose Monitor 1: Date: 08/21/23 Time: 15:03 PTT Result:: BASELINE PTT: 29.3 SECONDS Infusion Rate:: RECOMMEND INITIATING HEPARIN DRIP AT 1100 UNITS/HOUR = 22 ML/HOUR AND BOLUS 5000 UNITS HEPARIN IV ONCE. Comment:: BASELINE PLATELET COUNT: 272,000 Dose Monitor 2: Date: 08/21/23 Time: 21:30 PTT Result:: 109 SECONDS Infusion Rate:: RECOMMEND DECREASING HEPARIN DRIP TO 900 UNITS/HOUR = 18 ML/HOUR Dose Monitor 3: Date: 08/22/23 Time: 00:00 PTT Result:: 97.5 SECONDS Infusion Rate:: RECOMMENDED CONTINUING HEPARIN DRIP AT 900 UNITS/HOUR = 18 ML/HOUR. Dose Monitor 4: Date: 08/22/23 Time: 07:00 PTT Result:: 61.2 SECONDS Infusion Rate:: RECOMMENDED CONTINUING HEPARIN DRIP AT 900 UNITS/HOUR = 18 ML/HOUR. Dose Monitor 5: Date: 08/22/23 Time: 11:00 PTT Result:: 63.2 SECONDS Infusion Rate:: RECOMMENDED CONTINUING HEPARIN DRIP AT 900 UNITS/HOUR = 18 ML/HOUR. Core Measures Is INR > or = 2 at discharge?: No Most Recent Labs:: Laboratory Results - last 24 hr 08/20/23 14:32: PT 11.6, INR 1.04 08/21/23 06:47: WBC 16.3 H, RBC 4.70, Hgb 14.4 D, Hct 44.0, MCV 93.7, MCH 30.7, MCHC 32.7, RDW 14.6, Plt Count 272, MPV 8.6, Neut % (Auto) 88.1 H, Lymph % (Auto) 6.6 L, [place] % (Auto) 4.4, Eos % (Auto) 0.7, Baso % (Auto) 0.3, Neut # (Auto) 14.3 H, Lymph # (Auto) 1.1, [place] # (Auto) 0.7, Eos # (Auto) 0.1, Baso # (Auto) 0.1, Total Counted 100, Neutrophils % (Manual) 90 H, Band Neutrophils % 1.0, Lymphocytes % (Manual) 5 L, Monocytes % (Manual) 4, Platelet Estimate Normal, RBC Morphology Normal, Sodium 139, Potassium 4.4 D, Chloride 111 H, Carbon Dioxide 23, Anion Gap 9.4, BUN 23 H, Creatinine 0.60 D, Estimated Creat Clear 55, Estimated GFR 97, Est GFR ( Amer) 118 D, Glucose 132 H D, Calcium 9.0, Procalcitonin 0.272 If INR was < than 2.0 why was therapy stopped?: STOPPED AND GIVE ONE TIME LOVENOX DOSE PER VERBAL ORDERS FROM DR MARTIN. Were Heparin and Warfarin started on the same day?: No
[2023-08-21 16:00] VITALS: BP 123/66; PULSE 96; RESP 17; TEMP 36.4; O2SAT 95
[2023-08-21 16:00] LABS: PTT Heparin (inpatient only) 29.3 Seconds (50-75)
[2023-08-21] MEDS: HEPARIN SODIUM,PORCINE/D5W 500 ML 22 UNIT IV (16:02)
[2023-08-21] MEDS: HEPARIN SODIUM 5,000 UNIT/ML VIAL 5000 UNIT IV (16:03)
[2023-08-21] MEDS: 0.9 % SODIUM CHLORIDE 1000ML 1,000 ML 100 ML IV (16:54)
[2023-08-21 19:55] VITALS: PULSE 120
[2023-08-21 20:08] VITALS: BP 126/78; PULSE 115; RESP 18; TEMP 36.8; O2SAT 93
[2023-08-21] MEDS: HEPARIN SODIUM,PORCINE/D5W 500 ML 18 UNIT IV (22:53)
[2023-08-22 00:54] LABS: PTT Heparin (inpatient only) 97.5 Seconds (50-75)
--- NOTE | 2023-08-22 01:00 | PC.WOUNDNOTE ---
STAGE 2 SACRAL WOUND, PINK BASE OF WOUND, NO DRAINAGE OR ODOR NOTED
--- NOTE | 2023-08-22 01:32 | PC.NURSE ---
lab called with critical result of ptt of 109. notified [facility] pharmacist. order placed to decrease rate of heparin drip to 900units/hr. order placed to repeat ptt @ 0000. [facility] pharmacist notified author to recent ptt 97.5. per heparin protocol pharmacist gave phone order to leave rate of heparin @ 900u/hr.
[2023-08-22] MEDS: 0.9 % SODIUM CHLORIDE 1000ML 1,000 ML 100 ML IV ×2 (03:01→09:26)
[2023-08-22 04:00] VITALS: BP 142/70; PULSE 98; RESP 16; TEMP 37.7; O2SAT 94; BMI 25.4
[2023-08-22 07:13] LABS: Magnesium 1.8 mg/dl (1.6-2.3)
[2023-08-22 07:18] LABS: Basophils # 0.1 K/mm3 (0-0.2); Basophils % 0.3 % (0.1-2.0); Eosinophils # 0.2 K/mm3 (0.0-0.4); Eosinophils % 1.2 % (0.1-12.0); Hematocrit 41.8 % (37.0-47.0); Hemoglobin 13.5 g/dL (12.2-16.2); Lymphocytes # 1.2 K/mm3 (0.7-4.5); Lymphocytes % 7.3 % (10-50); Mean Corpuscular HGB Conc 32.3 g/dL (31.8-35.4); Mean Corpuscular Hemoglobin 30.7 pg (27.0-31.2); Mean Corpuscular Volume 94.9 fl (81-99); Mean Platelet Volume 8.9 fl (7.4-10.4); Monocytes # 0.8 K/mm3 (0.1-1.0); Monocytes % 4.9 % (1.7-9.3); Neutrophils # 14.3 K/mm3 (1.8-7.8); Neutrophils % 86.3 % (37.0-80.0); Platelet Count 217 K/mm3 (142-424); Red Cell Distribution Width 14.6 % (11.5-17.5); White Blood Count 16.6 K/mm3 (4.8-10.8)
[2023-08-22 07:19] LABS: PTT Heparin (inpatient only) 61.2 Seconds (50-75)
[2023-08-22 07:56] LABS: MANUAL DIFFERENTIAL MANUAL DIFFERENTIAL (MANUAL DIFF)
[2023-08-22 08:00] VITALS: BP 149/86; PULSE 91; RESP 22; TEMP 36.8; O2SAT 93
[2023-08-22 09:06] LABS: Lymphocytes % 11 % (10-50); Monocytes % 6 % (2-9); Neutrophils % 83 % (42-76); Total Cells Counted 100
[2023-08-22 09:07] LABS: Platelet Estimate Normal; RBC Morphology Normal
[2023-08-22] MEDS: PANTOPRAZOLE 40MG TABLET 40 MG PO (09:26)
[2023-08-22] MEDS: CEFTRIAXONE SODIUM 1 GM in 0.9 % SODIUM CHLORIDE 50 ML IV (09:26)
[2023-08-22 11:47] LABS: PTT Heparin (inpatient only) 63.2 Seconds (50-75)
--- NOTE | 2023-08-22 15:18 | P.PN_ITS ---
Subjective *Date: 08/22/23 *Time: 15:18 Interval history: Remained stable. Surgery assisting with care. No nausea or vomiting. Afebrile. Medical Exam Vital signs and Labs for Last 24 Hours: Vital Signs Temp Pulse Pulse Resp BP Pulse Ox O2 Del Method 08/22/23 13:48 Nasal Cannula 08/22/23 13:00 Nasal Cannula 08/22/23 10:26 Nasal Cannula 08/22/23 09:00 Nasal Cannula 08/22/23 08:00 Nasal Cannula 08/22/23 08:00 98.2 F 91 H 22 149/86 H 93 L Nasal Cannula 08/22/23 06:55 Room Air 08/22/23 05:00 Room Air 08/22/23 04:00 99.8 F H 98 H 16 142/70 H 94 L Nasal Cannula 08/22/23 03:00 Room Air 08/22/23 01:00 Room Air 08/21/23 23:00 Room Air 08/21/23 21:00 Room Air 08/21/23 20:08 98.3 F 115 H 18 126/78 93 L Room Air 08/21/23 19:55 120 H Nasal Cannula 08/21/23 19:00 Nasal Cannula 08/21/23 17:00 Nasal Cannula 08/21/23 16:00 97.5 F L 96 H 17 123/66 95 Nasal Cannula O2 Flow Rate 08/22/23 13:48 2 08/22/23 13:00 2 08/22/23 10:26 2 08/22/23 09:00 2 08/22/23 08:00 2 08/22/23 08:00 2 08/22/23 06:55 08/22/23 05:00 08/22/23 04:00 08/22/23 03:00 08/22/23 01:00 08/21/23 23:00 08/21/23 21:00 08/21/23 20:08 08/21/23 19:55 2 08/21/23 19:00 2 08/21/23 17:00 2 08/21/23 16:00 2 Intake and Output 08/21/23 08/22/23 08/22/23 23:59 07:59 15:59 Intake Total 500 / 1040 1290 / 1290 0 / 1290 Output Total 600 / 1200 450 / 450 Balance -100 / -160 840 / 840 0 / 840 Intake: Intake, Oral Amount 500 / 1040 0 / 0 Intake, Total IV Amount 1290 / 1290 0.9 % Sodium Chloride 1000ML 1, 1290 / 1290 000 ml @ 100 mls/hr IV .Q10H [facility] Rx#:[id number] Output: Output, Urine Amount 600 / 1200 450 / 450 Other: Number of Voids 0 Number of Unmeasured Voids 1 0 Number of Bowel Movements 1 1 Weight 72 kg Patient Weight 08/22/23 23:59 Weight 72 kg Laboratory Results - last 24 hr 08/20/23 14:20: Urine Color Yellow, Urine Appearance Clear, Urine pH 6.0, Ur Specific [place] >= 1.030, Urine Protein Trace, Urine Glucose (UA) Negative, Urine Ketones Negative, Urine Blood Trace-i, Urine Nitrate Negative, Urine Bilirubin Negative, Urine Urobilinogen 0.2, Ur Leukocyte Esterase 1+ A, Urine RBC Occasional, Urine WBC 20-50, Ur Squamous Epith Cells 5-10, Urine Bacteria 3+ 08/21/23 15:30: APTT 29.3 L 08/21/23 21:35: APTT 109.0 H* 08/22/23 00:12: APTT 97.5 H* 08/22/23 06:45: WBC 16.6 H, RBC 4.40, Hgb 13.5, Hct 41.8, MCV 94.9, MCH 30.7, MCHC 32.3, RDW 14.6, Plt Count 217, MPV 8.9, Neut % (Auto) 86.3 H, Lymph % (Auto) 7.3 L, [place] % (Auto) 4.9, Eos % (Auto) 1.2, Baso % (Auto) 0.3, Neut # (Auto) 14.3 H, Lymph # (Auto) 1.2, [place] # (Auto) 0.8, Eos # (Auto) 0.2, Baso # (Auto) 0.1, Total Counted 100, Neutrophils % (Manual) 83 H, Lymphocytes % (Manual) 11, Monocytes % (Manual) 6, Platelet Estimate Normal, RBC Morphology Normal, APTT 61.2, Magnesium 1.8 08/22/23 10:58: APTT 63.2 I & O for Labs for Last 24 Hours: Intake & Output 08/19/23 08/20/23 08/21/23 08/22/23 23:59 23:59 23:59 23:59 Intake Total 240 / 240 1040 / 1040 1290 / 1290 Output Total 1200 / 1200 450 / 450 Balance 240 / -60 -160 / -160 840 / 840 Weight 72.575 kg 72 kg 72 kg Microbiology Reports for the Last 24 Hours: Microbiology 08/20/23 14:20 Urine,Clean Catch Urine Culture - Preliminary Gram Negative Rods Gram Negative Rods#2 Constitutional: Present no acute distress, average body habitus, chronically ill appearing and cooperative Head: Present normocephalic ENT: Present normal exam Neck: Present normal inspection Respiratory: Present CTA bilaterally; Absent rhonchi, wheezes or crackles Cardiac: Present Reg Rate and Rhythm and Regular Rate GI: Present soft and normal bowel sounds Rectal (female): Present deferred (female): Present deferred Comment:: Right hip extremely painful with all range of motion exercises both passive and active Skin: Present intact and warm Assessment and Plan *Assessment and plan (1) Closed displaced fracture of right femoral neck: Status: Acute Category: Medical Code(s): S72.001A - Fracture of unspecified part of neck of right femur, initial encounter for closed fracture (2) Advanced dementia: Status: Acute Qualifiers: Dementia type: Alzheimer's Alzheimer's disease onset: late onset Dementia behavioral or psychological symptom: without behavioral, psychotic, or mood disturbance or anxiety Qualified Code(s): G30.1 - Alzheimer's disease with late onset; F02.C0 - Dementia in other diseases classified elsewhere, severe, without behavioral disturbance, psychotic disturbance, mood disturbance, and anxiety Category: Medical Code(s): F03.C0 - Unspecified dementia, severe, without behavioral disturbance, psychotic disturbance, mood disturbance, and anxiety (3) UTI (urinary tract infection): Status: Acute Qualifiers: Urinary tract infection type: acute cystitis Hematuria presence: without hematuria Qualified Code(s): N30.00 - Acute cystitis without hematuria Category: Medical Code(s): N39.0 - Urinary tract infection, site not specified (4) Chronic anticoagulation: Status: Chronic Category: Medical Code(s): 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 She fell at home and she was brought to the ED for right hip pain. A previous left hip fracture with repair is noted. She has a history of pulmonary embolus and is chronically anticoagulated with Eliquis and her last dose was Saturday, August 19, 2023. Plan for surgery in the morning. Patient appears comfortable. Problems addressed as follows: Closed displaced fracture of right femoral neck Orthopedic consultation; discussed case this morning, scheduled for repair tomorrow. Patient n.p.o. at midnight. PT and OT to evaluate after surgery. Continue Tylenol as needed every 6 hours 1000 mg and morphine 2 mg IV every 4 hours as needed. Monitoring for toxicity. Advanced dementia Fall precautions Routine nursing interaction Consent from family for surgery noted UTI Urine growing 2 different types of gram-negative rods. Will continue ceftriaxone 1 g daily. -Urine culture still pending for speciation and sensitivity -White cell count remains elevated at 16.6. Repeat CBC, CMP, magnesium ordered for the morning pulmonary embolus on Eliquis at home: -Eliquis currently on hold in preparation for right total hip repair on Monday. Transition to Lovenox 1 mg/kg twice daily PPX TLOV CODE STATUS DNR FEN Cardiac, n.p.o. at midnight The length of stay for this patient will be 2 midnights or greater due to above diagnoses.
--- NOTE | 2023-08-22 15:52 | PC.NURSE ---
Pt. sleeping most of the day, confused at baseline with advanced dementia, turn every 2 hours, DNR, 20G R H SL, 20G R UA SL, F/C in place, surgery consent signed for tomorrow Monday with DR. STERN.
[2023-08-22 16:00] VITALS: BP 115/71; PULSE 87; RESP 20; TEMP 36.7; O2SAT 96
[2023-08-22] MEDS: ENOXAPARIN 40MG/0.4ML SYRINGE 40 MG SQ (17:11)
--- NOTE | 2023-08-22 18:27 | PC.NURSE ---
patient's family fed her a few bites of cottage cheese. Family requested patient to rest until family came back later this evening.
[2023-08-22 20:00] VITALS: BP 158/72; PULSE 89; RESP 16; TEMP 36.6; O2SAT 96
[2023-08-22 21:00] VITALS: O2SAT 96
[2023-08-23] VITALS (20 sets, daily range): BP systolic 130–154; BP diastolic 72–90; PULSE 84–100; RESP 14–20; TEMP 36.4–36.9; O2SAT 91–99; BMI 25.4
--- NOTE | 2023-08-23 04:38 | PC.NURSE ---
pt npo after mn for surgery to right hip
[2023-08-23 06:54] LABS: Basophils # 0.1 K/mm3 (0-0.2); Basophils % 0.4 % (0.1-2.0); Eosinophils # 0.1 K/mm3 (0.0-0.4); Eosinophils % 0.8 % (0.1-12.0); Hematocrit 41.7 % (37.0-47.0); Hemoglobin 13.6 g/dL (12.2-16.2); Lymphocytes # 0.9 K/mm3 (0.7-4.5); Lymphocytes % 5.8 % (10-50); Mean Corpuscular HGB Conc 32.7 g/dL (31.8-35.4); Mean Corpuscular Hemoglobin 31.2 pg (27.0-31.2); Mean Corpuscular Volume 95.6 fl (81-99); Mean Platelet Volume 8.9 fl (7.4-10.4); Monocytes # 0.8 K/mm3 (0.1-1.0); Monocytes % 5.1 % (1.7-9.3); Neutrophils # 13.2 K/mm3 (1.8-7.8); Neutrophils % 87.9 % (37.0-80.0); Platelet Count 209 K/mm3 (142-424); Red Blood Count 4.37 M/mm3 (4.20-5.40); Red Cell Distribution Width 14.6 % (11.5-17.5)
[2023-08-23 07:04] LABS: Alanine Aminotransferase 102 U/L (12-78); Albumin Level 2.9 g/dl (3.5-5.0); Albumin/Globulin Ratio 1.1 (1.1-1.8); Alkaline Phosphatase 158 U/L (38-126); Anion Gap 7.3 mEq/L (5-15); Aspartate Amino Transferase 54 U/L (14-36); Blood Urea Nitrogen 11 mg/dl (7-17); Calcium 8.6 mg/dl (8.4-10.2); Carbon Dioxide 27 mmol/L (22.0-30.0); Chloride 104 mmol/L (98-107); Creatinine Clearance Estimated 55 mL/min (50-200); Estimated Glomerular Filt Rate 156 ml/min (>60); GFR (African American) 188 ML/MIN (>60); Globulin 2.7 g/dL (1.3-3.2); Glucose 126 mg/dl (74-100); Potassium 3.3 mmoL/L (3.5-5.1); Sodium 135 mmol/L (136-145); Total Protein,Serum 5.6 g/dl (6.3-8.2)
[2023-08-23 07:08] LABS: MANUAL DIFFERENTIAL MANUAL DIFFERENTIAL (MANUAL DIFF)
[2023-08-23 07:24] LABS: Magnesium 1.8 mg/dl (1.6-2.3)
[2023-08-23 08:30] LABS: Lymphocytes % 5 % (10-50); Monocytes % 6 % (2-9); Neutrophils % 89 % (42-76); Total Cells Counted 100
[2023-08-23 08:31] LABS: Platelet Estimate Normal; RBC Morphology Normal
[2023-08-23] MEDS: KCl 10mEq/100ml 100 ML 100 MEQ IV ×3 (08:36→10:53)
[2023-08-23] MEDS: CEFTRIAXONE SODIUM 1 GM in 0.9 % SODIUM CHLORIDE 50 ML IV (09:36)
--- NOTE | 2023-08-23 12:29 | P.PNANES_ITS ---
[facility] Disclaimer: The information contained in this section may have been updated after the patient was seen, as this information can be updated by other users. Medical History (Updated 08/22/23 @ 15:20 by Gaston Cross MD) Advanced dementia Pulmonary embolus Surgical History (Updated 08/20/23 @ 17:19 by Rigoberto Galo MD) Status post Vaibhav fundoplication S/P lumbar spinal fusion Status post closed fracture of left hip S/P wrist surgery Family History (Updated 08/20/23 @ 17:20 by Rigoberto Galo MD) Father Hip fracture Mother Coronary artery disease Social History Smoking Status: Never smoker alcohol intake: never substance use type: denies use current occupational status: disabled Travel in the last 8 weeks: None [facility] Anesthesia Checklist Patient Identification Patient Identification: Arm Band, Family and Verbal (Name & ) Structural Data Planned Operative Procedure/s: RT. hip Hemiarthroplasty Consent for Planned Operative Procedure(s) Verified: Yes Verified Documents: Surgical Consent and History and Physical NPO Status Verified Time NPO: 00:00 Chart Verification Results Verified: CBC, BMP, PT, PTT, INR, ECG and Chest Xray Additional verifications Patient : No Anesthesia Reactions: No Cardiovascular Assessment Heart Sounds: S1 & S2 Pulse Rhythm: Irregular Peripheral Edema: No Airway Assessment Mallampati Score:: Class II (Unable to assess d/t pt.'s advanced dementia & inability to follow commands) C-Spine Mobility Assessed: Yes (FROM assumed. See comment above) TMJ Mobility Assessed: Yes Dentition: Poor Dentition (severely carried teeth. Unable to assess mobility of them.) Neurological Assessment Level of Consciousness: Awake, Alert, Inappropriate and Disoriented Hx Seizures: No Numbness or tingling in extremities: No Anesthesia Plan Anesthesia Risk discussed: Yes Anesthesia Plan: Verified ASA Class: III Anesthesia Type: General Preoperative Comments Pre-Operative Comments: Lengthy discussion w/pt.'s son regarding pt.'s DNR status and its suspension during the perioperative period. Also discussed possibility of post-operative ventilation d/t pt.'s respiratory status. Unable to perform SAB d/t pt. currently on Eliquis.
[2023-08-23] MEDS: CEFAZOLIN 1GM VIAL 2 GM (12:47)
[2023-08-23] MEDS: 0.9 % SODIUM CHLORIDE 100 ML 25 ML IV (12:47)
--- NOTE | 2023-08-23 12:49 | P.PN_ITS ---
Subjective *Date: 08/23/23 *Time: 12:49 Interval history: Patient responsive on exam this morning. On 2 L nasal cannula oxygen. Denies any pain or discomfort. Medical Exam Vital signs and Labs for Last 24 Hours: Vital Signs Temp Pulse Resp BP Pulse Ox O2 Del Method O2 Flow Rate 08/23/23 11:00 Nasal Cannula 2 08/23/23 09:00 Room Air 08/23/23 08:00 Nasal Cannula 2 08/23/23 08:00 98.2 F 96 H 20 154/90 H 96 Nasal Cannula 2 08/23/23 06:42 Nasal Cannula 2 08/23/23 05:00 Nasal Cannula 2 08/23/23 04:00 98.2 F 100 H 16 153/81 H 96 Nasal Cannula 2 08/23/23 03:00 Nasal Cannula 2 08/23/23 01:00 Nasal Cannula 2 08/22/23 23:00 Nasal Cannula 2 08/22/23 21:00 96 Nasal Cannula 2 08/22/23 21:00 Nasal Cannula 2 08/22/23 20:05 Nasal Cannula 2 08/22/23 20:00 97.8 F 89 16 158/72 H 96 Nasal Cannula 2 08/22/23 20:00 Nasal Cannula 2 08/22/23 18:16 Nasal Cannula, Venturi Mask 08/22/23 16:39 Nasal Cannula 2 08/22/23 16:00 98.0 F 87 20 115/71 96 Nasal Cannula 2 08/22/23 13:48 Nasal Cannula 2 08/22/23 13:00 Nasal Cannula 2 FiO2 08/23/23 11:00 08/23/23 09:00 08/23/23 08:00 08/23/23 08:00 08/23/23 06:42 08/23/23 05:00 08/23/23 04:00 08/23/23 03:00 08/23/23 01:00 08/22/23 23:00 08/22/23 21:00 08/22/23 21:00 08/22/23 20:05 28 08/22/23 20:00 08/22/23 20:00 08/22/23 18:16 08/22/23 16:39 08/22/23 16:00 08/22/23 13:48 08/22/23 13:00 Intake and Output 07/08/23/23 08/23/23 23:59 07:59 15:59 Intake Total 120 / 2345 0 / 0 Output Total 525 / 975 500 / 500 Balance -405 / 1370 -500 / -500 0 / -500 Intake: Intake, Oral Amount 120 / 255 0 / 0 Output: Output, Urine Amount 525 / 975 500 / 500 Other: Number of Unmeasured Voids 0 Number of Bowel Movements 1 1 Weight 72 kg Patient Weight 08/23/23 23:59 Weight 72 kg Laboratory Results - last 24 hr 08/23/23 06:19: WBC 15.0 H, RBC 4.37, Hgb 13.6, Hct 41.7, MCV 95.6, MCH 31.2, MCHC 32.7, RDW 14.6, Plt Count 209, MPV 8.9, Neut % (Auto) 87.9 H, Lymph % (Auto) 5.8 L, [place] % (Auto) 5.1, Eos % (Auto) 0.8, Baso % (Auto) 0.4, Neut # (Auto) 13.2 H, Lymph # (Auto) 0.9, [place] # (Auto) 0.8, Eos # (Auto) 0.1, Baso # (Auto) 0.1, Total Counted 100, Neutrophils % (Manual) 89 H, Lymphocytes % (Manual) 5 L, Monocytes % (Manual) 6, Platelet Estimate Normal, RBC Morphology Normal, Sodium 135 L, Potassium 3.3 L D, Chloride 104, Carbon Dioxide 27, Anion Gap 7.3, BUN 11 D, Creatinine 0.40 L D, Estimated Creat Clear 55, Estimated GFR 156, Est GFR ( Amer) 188 D, Glucose 126 H, Calcium 8.6, Magnesium 1.8, Total Bilirubin 1.0, AST 54 H D, ALT 102 H, Alkaline Phosphatase 158 H, Total Protein 5.6 L, Albumin 2.9 L, Globulin 2.7, Albumin/Globulin Ratio 1.1 I & O for Labs for Last 24 Hours: Intake & Output 08/20/23 08/21/23 08/22/23 08/23/23 23:59 23:59 23:59 23:59 Intake Total 240 / 240 1040 / 1040 2345 / 2345 0 / 0 Output Total 1200 / 1200 975 / 975 500 / 500 Balance 240 / -60 -160 / -160 1370 / 1370 -500 / -500 Weight 72.575 kg 72 kg 72 kg 72 kg Microbiology Reports for the Last 24 Hours: Microbiology 08/20/23 14:20 Urine,Clean Catch Urine Culture - Final Escherichia coli#2 Escherichia coli Constitutional: Present no acute distress, average body habitus, chronically ill appearing and cooperative Head: Present normocephalic ENT: Present normal exam Neck: Present normal inspection Respiratory: Present CTA bilaterally; Absent rhonchi, wheezes or crackles Cardiac: Present Reg Rate and Rhythm and Regular Rate GI: Present soft and normal bowel sounds Rectal (female): Present deferred (female): Present deferred Comment:: Right hip painful to touch. Skin: Present intact and warm Assessment and Plan *Assessment and plan (1) Closed displaced fracture of right femoral neck: Status: Acute Category: Medical Code(s): S72.001A - Fracture of unspecified part of neck of right femur, initial encounter for closed fracture (2) Advanced dementia: Status: Acute Qualifiers: Dementia type: Alzheimer's Alzheimer's disease onset: late onset Dementia behavioral or psychological symptom: without behavioral, psychotic, or mood disturbance or anxiety Qualified Code(s): G30.1 - Alzheimer's disease with late onset; F02.C0 - Dementia in other diseases classified elsewhere, severe, without behavioral disturbance, psychotic disturbance, mood disturbance, and anxiety Category: Medical Code(s): F03.C0 - Unspecified dementia, severe, without behavioral disturbance, psychotic disturbance, mood disturbance, and anxiety (3) UTI (urinary tract infection): Status: Acute Qualifiers: Urinary tract infection type: acute cystitis Hematuria presence: without hematuria Qualified Code(s): N30.00 - Acute cystitis without hematuria Category: Medical Code(s): N39.0 - Urinary tract infection, site not specified (4) Chronic anticoagulation: Status: Chronic Category: Medical Code(s): Z79.01 - residential (current) use of anticoagulants (5) Pulmonary embolus: Status: Chronic Category: Medical Code(s): I26.99 - Other pulmonary embolism without acute cor pulmonale Plan This is a 77-year-old female with advanced dementia who normally ambulates with a walker. She fell at home and she was brought to the ED for right hip pain. A previous left hip fracture with repair is noted. She has a history of pulmonary embolus and is chronically anticoagulated with Eliquis and her last dose was Saturday, August 19, 2023. Plan for surgery today. Patient comfortable. Continues to require inpatient management. Will likely need placement after therapy eval. Problems addressed as follows: Closed displaced fracture of right femoral neck Orthopedic consultation; planning for surgery today. Patient is NPO. PT and OT to evaluate after surgery. Continue Tylenol as needed every 6 hours 1000 mg and morphine 2 mg IV every 4 hours as needed. Monitoring for toxicity. Advanced dementia Fall precautions Routine nursing interaction Consent from family for surgery noted UTI Urine growing 2 strains of E. coli. Sensitive to ceftriaxone. Continue ceftriaxone 1 g daily. -White cell count remains elevated at 15. Repeat CBC, CMP, magnesium ordered for the morning pulmonary embolus on Eliquis at home: -Eliquis currently on hold in preparation for right total hip repair on Monday. Plan to resume Eliquis after surgery PPX eliquis CODE STATUS DNR FEN Cardiac
--- NOTE | 2023-08-23 13:40 | XR_ITS ---
FINAL REPORT CLINICAL HISTORY: R/O aspirated tooth. COMPARISON: 08/20/2023 FINDINGS: A portable view of the chest was obtained. Cardiac and mediastinal silhouettes are within normal limits. Endotracheal tube tip terminates 3.3 cm above the rolando. There is left basilar opacity, likely atelectasis. No foreign body is identified.. There is no pleural effusion or pneumothorax. IMPRESSION: No foreign body identified. Left basilar opacity, likely atelectasis. Reviewed, Interpreted and Dictated by Rolando Garg MD Transcribed by Lorelei Liz Authenticated and . [facility]
--- NOTE | 2023-08-23 16:04 | P.PNANES_ITS ---
[facility] Anesthesia Record Part I Anesthesia Record I Intake, IV Amount: 2,500 Hydration: Adequate Estimated blood loss (mL): 150 Urine output (mL): 500 Blood Pressure: 144/89 SaO2: 96 Pulse Rate: 91 Airway Patency: Patent Respiratory Rate: 14 Temperature: 98.4 F Patient is:: Drowsy and Stable Stable to PACU at:: 16:00
--- NOTE | 2023-08-23 16:06 | XR_ITS ---
FINAL REPORT CLINICAL HISTORY: S/P Right hemiarthroplasty hip pt in post op, s/p right hip sx COMPARISON: None FINDINGS: SINGLE VIEW PELVIS: A single view of the pelvis was obtained. There are changes from right hip arthroplasty. There is ORIF of the left hip. Iliac crest is excluded from the film. There is no acute fracture or dislocation. Visualized joint spaces are normally aligned. There is soft tissue air adjacent to the arthroplasty. IMPRESSION: No immediate complications from right hip arthroplasty. Reviewed, Interpreted and Dictated by Mellisa Garg MD Transcribed by Mary Ley Authenticated and [facility]
--- NOTE | 2023-08-23 16:18 | EXP.OP.NOTE ---
Date of procedure: 08/23/23 Pre-op Diagnosis:: Displaced right femoral neck fracture Post-op Diagnosis:: Same Procedure performed:: Hemiarthroplasty right hip Surgeon:: Jos Phillips DO [employer] Department Supervisor(s):: Rebel VELASCO CINDER CRANE OPERATOR:: Federico De Jesus Anesthesia: GETA Estimated blood loss (mL): 150 Clinical Note:: Implants DePuy saws 14 press-fit stem standard neck with a size 45 femoral head Operative findings:: See dictation Operative note:: Patient is identified preoperatively. Right hip marked with yes my initials. Transferred operative suite placed upon the operating bed general anesthesia ministered airway secured. Then placed in a lateral position on the table with the hip holders in place all bony prominences well-padded. Right hip was then prepped and draped in normal sterile fashion. Once prepped and draped final operative timeout performed to identify proper patient procedure and extremity. Everyone involved the case agreed. There is no counter indications beginning. She did receive preoperative antibiotics Ancef. Marking pen was used to sang plan incision over the lateral hip. Skin knife was used incise through skin subcutaneous tissue. Dissection was taken down to the IT band and the IT band was cut in line with the femur. Charnley retractor was then placed. The trochanteric bursa was removed. The abductors were identified in the proximal femur and standard abductor peel method with a modified Hardinge approach was utilized. Adductors were placed in the Charnley retractor for protection throughout the procedure. There is then exposed the capsule of the hip which was cut in line with the femoral neck. Hematoma was evacuated. Hohmann retractors were placed and a freshen up cut of the femoral neck was performed. The bony portion is then removed. Attention was brought to the acetabulum where the femoral head was identified. Using combination of a [id number] clamp and ice cream scoop like retractor the femoral head was removed and sized to a size 45 on the back table. Attention was then brought to the femur. The leg was brought anteriorly and externally rotated in the hip draped bag femoral neck elevator was placed cookie cutter lateral broach utilized canal finder utilized followed by the lateralizing broach. Initial broach was utilized and subsequently broached up from to a size 14 which gave good solid fit and fill. The size 14 implant was then selected and impacted into place. A standard size neck and standard head was used was selected with a size 45 head impacted onto the femoral head. Inline traction was placed on the femur and the hip was reduced. Hip was then taken through range of motion and found to be in stable position. Irrigation of the wound was performed the capsule was closed with 0 Vicryl stitch the abductors was repaired with #5 Ethibond stitch IT band was closed with a #2 strata fix suture deep layers closed with 0 Vicryl subcutaneous with 2-0 Vicryl surgical clips in the skin for closure sterile dressing placed abduction pillow placed patient waken anesthesia taken recovery stable condition. Condition: stable Disposition: PACU Complications:: No complications of the surgery. At the time of induction with anesthesia patient did have several decaying teeth. There was a concern with anesthesia provider there that during induction and placement of the tube that possibly one of the teeth had broken loose. Prior to the surgery a chest x-ray was obtained at which time no tooth was identified in the airways or in the stomach.
--- NOTE | 2023-08-23 18:13 | PC.NURSE ---
pt is resting in bed with call light in reach. pt is demented and cannot express information, but can shake head yes or no. pt can follow commands. 1+ swelling in the left ankle noted on morning assessment. pt recieved dose of rocephin and 3 bags of potassium prior to surgery.morning dose of protonix held prior to surgery. pt surgery went well and dressing on rt hip is c/d/i. post op vitals stable. PACU expressed that there was concern of a tooth being knocked loose when tubed for surgery. monitoring pt for signs of displacement. pt had BM while in surgery. pt does not report any pain at this time. pt has incentive spirometer in room, but when being educated pt closes eyes and appears to be sleeping. pt family was at bedside most of the day, but have since left.
[2023-08-24] VITALS: BP 131/74; PULSE 95; RESP 18; TEMP 36.4; O2SAT 95
[2023-08-24 04:00] VITALS: BP 129/74; PULSE 98; RESP 18; TEMP 37.2; O2SAT 98; BMI 27.7
--- NOTE | 2023-08-24 05:41 | PC.NURSE ---
RESTING IN BED. ABDUCTOR PILLOW IN PLACE. 1+ EDEMA PRESENT IN BLEs AND LILIAN. DRSG TO RIGHT HIP C/D/I. DENIES PAIN MED
[2023-08-24 07:00] LABS: Basophils % 0.2 % (0.1-2.0); Eosinophils # 0.1 K/mm3 (0.0-0.4); Eosinophils % 0.5 % (0.1-12.0); Hematocrit 38.2 % (37.0-47.0); Hemoglobin 12.8 g/dL (12.2-16.2); Lymphocytes # 0.8 K/mm3 (0.7-4.5); Lymphocytes % 4.1 % (10-50); Mean Corpuscular HGB Conc 33.5 g/dL (31.8-35.4); Mean Corpuscular Hemoglobin 31.2 pg (27.0-31.2); Mean Corpuscular Volume 93.4 fl (81-99); Mean Platelet Volume 8.5 fl (7.4-10.4); Monocytes # 0.9 K/mm3 (0.1-1.0); Monocytes % 4.8 % (1.7-9.3); Neutrophils # 16.9 K/mm3 (1.8-7.8); Neutrophils % 90.4 % (37.0-80.0); Platelet Count 229 K/mm3 (142-424); Red Cell Distribution Width 14.3 % (11.5-17.5); White Blood Count 18.7 K/mm3 (4.8-10.8)
[2023-08-24 07:12] LABS: MANUAL DIFFERENTIAL MANUAL DIFFERENTIAL (MANUAL DIFF)
--- NOTE | 2023-08-24 07:13 | EXP.ANES.II ---
[facility] Anesthesia Record Part II Anesthesia Record Part II Discharge Time: 16:30 Destination: Medical Surgical Department PACU nurse assessment reviewed?: Yes Patient Condition:: Good Anesthesia Complications:: None Swallowing reflex intact?: Yes Airway Patency: Patent Cyanosis?: No Blood Pressure: 149/72 SaO2: 97 Respiratory Rate: 17 Pulse Rate: 90 Temperature: 97.6 F Mental Status: Alert & Oriented Pain level:: 0 Nausea and/or vomitting:: None Intake, IV Amount: 0 Hydration: Adequate
[2023-08-24 07:14] VITALS: BP 149/72; PULSE 90; RESP 17; TEMP 36.4; O2SAT 97
--- NOTE | 2023-08-24 07:42 | EXP.PHA.PN ---
Subjective *Date: 08/24/23 *Time: 07:42 Medical Exam Vital signs and Labs for Last 24 Hours: Vital Signs Temp Pulse Pulse Pulse Resp BP BP 08/24/23 07:14 17 08/24/23 06:36 08/24/23 05:00 08/24/23 04:00 99.0 F 98 H 18 129/74 08/24/23 02:35 08/24/23 01:00 08/24/23 00:00 97.5 F L 95 H 18 131/74 08/23/23 23:15 96 H 16 139/73 08/23/23 23:00 08/23/23 22:15 98.4 F 97 H 16 138/75 08/23/23 21:15 98.0 F 96 H 18 142/75 H 08/23/23 20:57 08/23/23 20:15 97.9 F 98 H 16 130/73 08/23/23 20:00 08/23/23 19:15 98.2 F 90 18 147/77 H 08/23/23 18:45 97.7 F 90 18 145/76 H 08/23/23 18:37 08/23/23 18:15 98.1 F 94 H 17 153/80 H 08/23/23 17:45 97.6 F 91 H 17 147/81 H 08/23/23 17:15 97.7 F 87 17 145/80 H 08/23/23 17:00 97.8 F 87 18 143/73 H 08/23/23 17:00 08/23/23 16:45 97.7 F 88 17 146/77 H 08/23/23 16:37 97.6 F 94 H 16 139/74 08/23/23 16:30 97.6 F 94 H 94 H 16 139/74 08/23/23 16:30 90 17 149/72 H 08/23/23 16:20 84 17 149/76 H 08/23/23 16:10 90 14 154/79 H 08/23/23 16:05 98.4 F 91 H 14 144/89 H 08/23/23 16:00 98.4 F 91 H 14 144/89 H 08/23/23 11:00 08/23/23 09:00 08/23/23 08:00 08/23/23 08:00 98.2 F 96 H 20 154/90 H Pulse Ox O2 Del Method O2 Flow Rate 08/24/23 07:14 08/24/23 06:36 Nasal Cannula 2 08/24/23 05:00 Nasal Cannula 2 08/24/23 04:00 98 Nasal Cannula 2 08/24/23 02:35 Nasal Cannula 2 08/24/23 01:00 Nasal Cannula 2 08/24/23 00:00 95 Nasal Cannula 2 08/23/23 23:15 98 Nasal Cannula 2 08/23/23 23:00 Nasal Cannula 2 08/23/23 22:15 99 Nasal Cannula 2 08/23/23 21:15 97 Nasal Cannula 2 08/23/23 20:57 Nasal Cannula 2 08/23/23 20:15 98 Nasal Cannula 2 08/23/23 20:00 98 Nasal Cannula 2 08/23/23 19:15 98 Nasal Cannula 2 08/23/23 18:45 98 Nasal Cannula 2 08/23/23 18:37 Nasal Cannula 2 08/23/23 18:15 99 Nasal Cannula 2 08/23/23 17:45 97 Nasal Cannula 2 08/23/23 17:15 97 Nasal Cannula 2 08/23/23 17:00 96 Nasal Cannula 2 08/23/23 17:00 Nasal Cannula 2 08/23/23 16:45 96 Nasal Cannula 2 08/23/23 16:37 91 L Nasal Cannula 2 08/23/23 16:30 91 L Nasal Cannula 2 08/23/23 16:30 97 Nasal Cannula 2 08/23/23 16:20 97 Nasal Cannula 2 08/23/23 16:10 98 Nasal Cannula 2 08/23/23 16:05 08/23/23 16:00 91 L Room Air 08/23/23 11:00 Nasal Cannula 2 08/23/23 09:00 Room Air 08/23/23 08:00 Nasal Cannula 2 08/23/23 08:00 96 Nasal Cannula 2 Intake and Output 08/23/23 08/23/23 08/24/23 15:59 23:59 07:59 Intake Total 0 / 2620 2500 / 2620 120 / 120 Output Total 400 / 900 500 / 500 Balance 0 / 1720 2100 / 1720 -380 / -380 Intake: Intake, Oral Amount 0 / 120 0 / 120 120 / 120 Intake, Total IV Amount 2500 / 2500 0 / 0 Output: Output, Urine Amount 400 / 900 500 / 500 Other: Number of Bowel Movements 1 Weight 78.273 kg Patient Weight 08/24/23 23:59 Weight 78.273 kg Laboratory Results - last 24 hr 08/23/23 06:19: Total Counted 100, Neutrophils % (Manual) 89 H, Lymphocytes % (Manual) 5 L, Monocytes % (Manual) 6, Platelet Estimate Normal, RBC Morphology Normal 08/24/23 06:48: WBC 18.7 H, RBC 4.10 L, Hgb 12.8, Hct 38.2, MCV 93.4, MCH 31.2, MCHC 33.5, RDW 14.3, Plt Count 229, MPV 8.5, Neut % (Auto) 90.4 H, Lymph % (Auto) 4.1 L, [place] % (Auto) 4.8, Eos % (Auto) 0.5, Baso % (Auto) 0.2, Neut # (Auto) 16.9 H, Lymph # (Auto) 0.8, [place] # (Auto) 0.9, Eos # (Auto) 0.1, Baso # (Auto) 0.0 I & O for Labs for Last 24 Hours: Intake & Output 08/21/23 08/22/23 08/23/23 08/24/23 23:59 23:59 23:59 23:59 Intake Total 1040 / 1040 2345 / 2345 2500 / 2620 120 / 120 Output Total 1200 / 1200 975 / 975 900 / 900 500 / 500 Balance -160 / -160 1370 / 1370 1600 / 1720 -380 / -380 Weight 72 kg 72 kg 72 kg 78.273 kg Microbiology Reports for the Last 24 Hours: Microbiology 08/20/23 14:20 Urine,Clean Catch Urine Culture - Final Escherichia coli#2 Escherichia coli The patient's infection will respond to the chosen ABx?: Yes Is the patient receiving the right drug, dose, and route?: Yes Could a more targeted ABx be ordered?: No (E. COLI IN URINE SENSITIVE TO ROCEPHIN)
[2023-08-24 08:00] VITALS: BP 109/59; PULSE 106; RESP 18; TEMP 37.1; O2SAT 94
[2023-08-24 08:00] LABS: Alanine Aminotransferase 59 U/L (12-78); Albumin Level 2.5 g/dl (3.5-5.0); Albumin/Globulin Ratio 0.9 (1.1-1.8); Alkaline Phosphatase 147 U/L (38-126); Anion Gap 5.3 mEq/L (5-15); Aspartate Amino Transferase 38 U/L (14-36); Blood Urea Nitrogen 10 mg/dl (7-17); Calcium 8.1 mg/dl (8.4-10.2); Carbon Dioxide 28 mmol/L (22.0-30.0); Chloride 105 mmol/L (98-107); Creatinine Clearance Estimated 60 mL/min (50-200); Estimated Glomerular Filt Rate 120 ml/min (>60); GFR (African American) 146 ML/MIN (>60); Globulin 2.7 g/dL (1.3-3.2); Glucose 139 mg/dl (74-100); Potassium 3.3 mmoL/L (3.5-5.1); Sodium 135 mmol/L (136-145); Total Protein,Serum 5.2 g/dl (6.3-8.2)
[2023-08-24 08:19] LABS: Magnesium 1.7 mg/dl (1.6-2.3)
[2023-08-24] MEDS: CEFTRIAXONE SODIUM 1 GM in 0.9 % SODIUM CHLORIDE 50 ML IV (09:20)
[2023-08-24] MEDS: APIXABAN 5MG TABLET 5 MG PO ×2 (09:22→20:30)
[2023-08-24] MEDS: PANTOPRAZOLE 40MG TABLET 40 MG PO (09:22)
[2023-08-24 09:27] LABS: Lymphocytes % 4 % (10-50); Monocytes % 10 % (2-9); Neutrophils % 86 % (42-76); Platelet Estimate Normal; RBC Morphology Normal; Total Cells Counted 100
--- NOTE | 2023-08-24 09:27 | SW/DCPLANNER ---
Addendum entered by [facility] 08/25/23 13:35: Tatiana riley/ Andre Torres requested that 30 supply of all medication be sent to [facility] and billed to [facility]. I have updated Jordi w/ Jorge and asked Tatiana to please follow up w/ Jordi regarding additional questions. Addendum entered by [facility] 08/25/23 08:02: Per Tatiana patient is approved for SNF level of care. Patient will discharge to [facility] today. Addendum entered by [facility] 08/24/23 14:07: Tatiana riley/ Andre Torres is start authorization for this patient. Addendum entered by [facility] 08/24/23 12:20: Tatiana riley/ Andre Torres will be onsite today to speak w/ patient and her son. Son prefers [facility] over [facility] but is agreeable to [facility] if [facility] is not able to accept. [facility] w/ [facility] is able to accept this patient. Addendum entered by [facility] 08/24/23 09:52: I spoke w/ patient's son (Dimitrios) regarding discharge plans. Dimitrios is agreeable to SNF level of care for his mother but is unsure as to which facility. Dimitrios is agreeable for information to be faxed to [facility], [facility] and [facility] at this time. I will continue to follow up w/ facilities and patient/family during hospital admission. Discharge date is unknown at this time. Original Note: I have attempted to contact patient's family regarding plans once medically stable for discharge. PT/OT evaluated patient and recommended SNF level of care. I will continue to contact family regarding SNF facilities. Discharge date is unknown at this time.
--- NOTE | 2023-08-24 09:38 | HMH.PTEV ---
Physical Therapy Evaluation Rehab PT IP Evaluation Start: 08/23/23 12:51 Freq: ONCE Status: Active Protocol: Document 08/24/23 09:16 NUVIA (Rec: 08/24/23 09:38 PHORORO [id number]) Subjective/History History History Patient Ayana Fernandez is a 77 year old female who was admitted to [facility] on 08/20/23 for a fall that occurred at home creating R hip pain. Patient lives at home. Patient does have a son named Dimitrios, who previously mentioned that the patient does use a walker to ambulate. Patient has severe cognitive limitations due to advanced dementia. During admission to ED hip x-rays identified right hip fracture with subsequent CT of the pelvis. Patient does have a previous L hip fx that was surgically fixed. Subjective Subjective Patient is very pleasant and smiling upon entering her room at this time, due to the severity of her dementia she was unable to express with words how she felt or location of her pain. New diagnosis of cancer in past 12 No months? Rehab PT IP Eval Objective Appearance Patient Behavior Appropriate,Confused,Patient Baseline Difficulty following instructions moderate Speech Pattern Difficulty Finding Words,No Speech,Patient Baseline Ambulation Patient Able to Ambulate No Balance Ability to Arise Unable Sitting Balance Leans or slides in chair Dynamic Sitting Balance Ability Poor Transfers Bed Transfer Ability Maximum x 2 (75% assist) Rehab PT IP prob,goals,plan Problems Date of Evaluation: 08/24/23 PT IP Problems Bed Mobility,Transfers,Gait, Safety Rehab Potential Rehab Potential Good Equipment Needs Assistive Devices Rolling / Wheeled Walker Plan PT Intervention Plan Bed Mobility,Transfers,Safety PT Plan Frequency Daily Duration LOS Discharge Goals Bed Transfer Ability Moderate x 1 (50% assist) Sit to Stand Chair Transfer Ability Moderate x 1 (50% assist) Ambulation Assistive Device Standard Walker Ambulation Distance (feet) 15 Discharge Plan PT Discharge Plan PT recommendation for this patient's safety at this time is that the patient go to rehab center for further treatment. To address the patient's LE weakness along with proper and safe ambulation. Skilled PT during inpatient stay is also recommended to address bed mobility concerns and transfers at this time. Eval Complexity Eval Charge Codes 36391 - High Complexity PHYSICIAN CERTIFICATION: I certify the specified therapy services for Ayana Fernandez are required, authorized, and reviewed every 30 days.
--- NOTE | 2023-08-24 09:44 | HMH.OTEV ---
OT Inpatient Evaluation Rehab OT IP Evaluation Start: 08/23/23 12:51 Freq: ONCE Status: Active Protocol: Document 08/24/23 09:34 [facility] (Rec: 08/24/23 09:43 [facility] [id number]) Rehab OT IP Assessment Subjective History Pt admitted to [facility] on 08/20/23 due to right hip fx from fall. Pt required a Hemiarthroplasty right hip on 08/23/23. Prior to being in the hospital, pt lived at home with son. Therapist is unsure of pt's prior functional ability or ADL independence because she is unable to provide history due to dementia. Pt was pleasant during therapy session and would smile at therapist but could not answer questions appropriately. History and report: This is a 77-year-old female that presents to [facility] emergency department after falling at home and now with right hip pain. She is accompanied by her son Dimitrios. Dimitrios reports the patient has advanced dementia and lives in their home. She typically ambulates with a walker and describes previous left hip fracture. She is chronically on Eliquis for pulmonary embolus. He reports the patient was ambulating in her room without her walker and fell with identified right hip concerns. In the ED hip x- rays identified right hip fracture with subsequent CT of the pelvis performed. Her labs identified a leukocytosis and her urinalysis was abnormal. She was started on IV Rocephin. Currently the patient denies pain and her son reports that she is at baseline. Subjective Ouch. Objective Right Upper Extremity Gross ROM WFL Left Upper Extremity Gross ROM WFL Bed Mobility bed mobility-scooting,bed mobility - supine/sit Assist Level Maximum x 2 (75% assist) Transfer Training Sit/Stand Transfer Assist Level Maximum x 2 (75% assist) Lower Body Dressing Ability Unable/dependent Rehab OT IP prob,goals,plan Problems Date of Evaluation: 08/24/23 OT IP Problems Bed Mobility,Transfers,Balance ,Self care,Safety Rehab Potential Rehab Potential Good Equipment Needs Assistive Devices Rolling / Wheeled Walker Plan OT intervention Plan Bed Mobility,Transfers,Balance ,Self care,Safety,Therapeutic Exercise OT Plan Frequency Daily Duration LOS Discharge Goals Bed Mobility Ability Assistance x1 Sit to Stand Chair Transfer Ability Maximum x 1 (75% assist) Chair Transfer Ability Maximum x 1 (75% assist) Chair Transfer Technique Stand Pivot Chair Transfer Assistive Devices Rolling Walker Lower Body Dressing Ability Maximum Assistance Upper Body Dressing Ability Moderate Assistance Bathing Ability Maximum Assistance Performing Toilet Hygiene Ability Maximum Assistance Overall Commode/Toilet Transfer Ability Maximum Assistance Commode/Toilet Transfer Technique Stand Step Pivot Commode/Toilet Transfer Assistive Raised Toilet Seat Devices Oral Care Assist Moderate Assistance Decrease in Endurance No Discharge Plan OT Discharge Plan Pt will continue to be seen for OT services while at [facility]. Pt would benefit most from short term rehab at [facility] following discharge. Continued skilled therapy is important in order for patient to improve strength, safety, endurance, ADL independence, and functional transfers to reach PLOF. Eval Complexity Eval Charge Codes 84894 - High Complexity PHYSICIAN CERTIFICATION: I certify the specified therapy services for Ayana Fernandez are required, authorized, and reviewed every 30 days.
[2023-08-24] MEDS: FUROSEMIDE 40 MG TABLET PO (10:44)
--- NOTE | 2023-08-24 12:11 | EXP.ORTH.PN ---
Subjective *Date: 08/24/23 *Time: 12:11 Interval history: Patient postop day 1 status post hemiarthroplasty right hip for displaced femoral neck fracture. Stable overnight. Patient pleasantly confused with no complaints. Ortho Exam (Inpt) Vital signs and Labs for Last 24 Hours: Temp Pulse Resp BP Pulse Ox O2 Del Method O2 Flow Rate 98.7 F 106 H 18 109/59 L 94 L Nasal Cannula 2 08/24/23 08:00 08/24/23 08:00 08/24/23 08:00 08/24/23 08:00 08/24/23 08:00 08/24/23 09:00 08/24/23 09:00 FiO2 28 08/22/23 20:05 Laboratory Results - last 24 hr 08/24/23 06:48: WBC 18.7 H, RBC 4.10 L, Hgb 12.8, Hct 38.2, MCV 93.4, MCH 31.2, MCHC 33.5, RDW 14.3, Plt Count 229, MPV 8.5, Neut % (Auto) 90.4 H, Lymph % (Auto) 4.1 L, [place] % (Auto) 4.8, Eos % (Auto) 0.5, Baso % (Auto) 0.2, Neut # (Auto) 16.9 H, Lymph # (Auto) 0.8, [place] # (Auto) 0.9, Eos # (Auto) 0.1, Baso # (Auto) 0.0, Total Counted 100, Neutrophils % (Manual) 86 H, Lymphocytes % (Manual) 4 L, Monocytes % (Manual) 10 H, Platelet Estimate Normal, RBC Morphology Normal, Sodium 135 L, Potassium 3.3 L, Chloride 105, Carbon Dioxide 28, Anion Gap 5.3, BUN 10, Creatinine 0.50 L D, Estimated Creat Clear 60, Estimated GFR 120, Est GFR ( Amer) 146 D, Glucose 139 H, Calcium 8.1 L, Magnesium 1.7, Total Bilirubin 1.0, AST 38 H D, ALT 59 D, Alkaline Phosphatase 147 H, Total Protein 5.2 L, Albumin 2.5 L D, Globulin 2.7, Albumin/Globulin Ratio 0.9 L I & O for Labs for Last 24 Hours: Intake & Output 08/21/23 08/22/23 08/23/23 08/24/23 23:59 23:59 23:59 23:59 Intake Total 1040 / 1040 2345 / 2345 2500 / 2620 390 / 390 Output Total 1200 / 1200 975 / 975 900 / 900 500 / 500 Balance -160 / -160 1370 / 1370 1600 / 1720 -110 / -110 Weight 158 lb 11.725 oz 158 lb 11.725 oz 158 lb 11.725 oz 172 lb 9 oz Microbiology Reports for the Last 24 Hours: Microbiology 08/20/23 14:20 Urine,Clean Catch Urine Culture - Final Escherichia coli#2 Escherichia coli Additional findings:: Right hip: Surgical dressing in place with no drainage. Assessment and Plan *Assessment and plan (1) Closed displaced fracture of right femoral neck: Problem Comment: Status post hemiarthroplasty Status: Acute Category: Medical Code(s): S72.001A - Fracture of unspecified part of neck of right femur, initial encounter for closed fracture Plan Patient stable overnight. At baseline prior to hip fracture she was ambulatory in nature. Will progress with therapy as safe. Will require rehabilitation following hospitalization. Patient will return to orthopedic clinic 2 and half weeks for staple removal.
[2023-08-24 16:00] VITALS: BP 117/63; PULSE 98; RESP 20; TEMP 37.7; O2SAT 98
--- NOTE | 2023-08-24 17:45 | P.PN_ITS ---
Subjective *Date: 08/24/23 *Time: 17:45 Interval history: Pleasant on exam this morning. Stable on 2 L oxygen. Tolerated surgery well yesterday. No fever overnight. Pain with movement but otherwise pleasant. Tolerating p.o. intake. Medical Exam Vital signs and Labs for Last 24 Hours: Vital Signs Temp Pulse Resp BP Pulse Ox O2 Del Method O2 Flow Rate 08/24/23 17:00 Nasal Cannula 2 08/24/23 16:00 100 F H 98 H 20 117/63 98 Nasal Cannula 2 08/24/23 15:00 Nasal Cannula 2 08/24/23 09:00 Nasal Cannula 2 08/24/23 08:00 Nasal Cannula 2 08/24/23 08:00 98.7 F 106 H 18 109/59 L 94 L Room Air 08/24/23 07:14 17 08/24/23 06:36 Nasal Cannula 2 08/24/23 05:00 Nasal Cannula 2 08/24/23 04:00 99.0 F 98 H 18 129/74 98 Nasal Cannula 2 08/24/23 02:35 Nasal Cannula 2 08/24/23 01:00 Nasal Cannula 2 08/24/23 00:00 97.5 F L 95 H 18 131/74 95 Nasal Cannula 2 08/23/23 23:15 96 H 16 139/73 98 Nasal Cannula 2 08/23/23 23:00 Nasal Cannula 2 08/23/23 22:15 98.4 F 97 H 16 138/75 99 Nasal Cannula 2 08/23/23 21:15 98.0 F 96 H 18 142/75 H 97 Nasal Cannula 2 08/23/23 20:57 Nasal Cannula 2 08/23/23 20:15 97.9 F 98 H 16 130/73 98 Nasal Cannula 2 08/23/23 20:00 98 Nasal Cannula 2 08/23/23 19:15 98.2 F 90 18 147/77 H 98 Nasal Cannula 2 08/23/23 18:45 97.7 F 90 18 145/76 H 98 Nasal Cannula 2 08/23/23 18:37 Nasal Cannula 2 08/23/23 18:15 98.1 F 94 H 17 153/80 H 99 Nasal Cannula 2 Intake and Output 08/24/23 08/24/23 08/24/23 07:59 15:59 23:59 Intake Total 120 / 1167 810 / 1167 237 / 1167 Output Total 500 / 500 Balance -380 / 667 810 / 667 237 / 667 Intake: Intake, Oral Amount 120 / 1167 810 / 1167 237 / 1167 Intake, Total IV Amount 0 / 0 Output: Output, Urine Amount 500 / 500 Other: Number of Unmeasured Voids 1 Number of Bowel Movements 1 1 1 Weight 78.273 kg Patient Weight 08/24/23 23:59 Weight 78.273 kg Laboratory Results - last 24 hr 08/24/23 06:48: WBC 18.7 H, RBC 4.10 L, Hgb 12.8, Hct 38.2, MCV 93.4, MCH 31.2, MCHC 33.5, RDW 14.3, Plt Count 229, MPV 8.5, Neut % (Auto) 90.4 H, Lymph % (Auto) 4.1 L, [place] % (Auto) 4.8, Eos % (Auto) 0.5, Baso % (Auto) 0.2, Neut # (Auto) 16.9 H, Lymph # (Auto) 0.8, [place] # (Auto) 0.9, Eos # (Auto) 0.1, Baso # (Auto) 0.0, Total Counted 100, Neutrophils % (Manual) 86 H, Lymphocytes % (Manual) 4 L, Monocytes % (Manual) 10 H, Platelet Estimate Normal, RBC Morphology Normal, Sodium 135 L, Potassium 3.3 L, Chloride 105, Carbon Dioxide 28, Anion Gap 5.3, BUN 10, Creatinine 0.50 L D, Estimated Creat Clear 60, Estimated GFR 120, Est GFR ( Amer) 146 D, Glucose 139 H, Calcium 8.1 L, Magnesium 1.7, Total Bilirubin 1.0, AST 38 H D, ALT 59 D, Alkaline Phosphatase 147 H, Total Protein 5.2 L, Albumin 2.5 L D, Globulin 2.7, Albumin/Globulin Ratio 0.9 L I & O for Labs for Last 24 Hours: Intake & Output 08/21/23 08/22/23 08/23/23 08/24/23 23:59 23:59 23:59 23:59 Intake Total 1040 / 1040 2345 / 2345 2500 / 2620 1167 / 1167 Output Total 1200 / 1200 975 / 975 900 / 900 500 / 500 Balance -160 / -160 1370 / 1370 1600 / 1720 667 / 667 Weight 72 kg 72 kg 72 kg 78.273 kg Constitutional: Present no acute distress, average body habitus, chronically ill appearing and cooperative Head: Present normocephalic ENT: Present normal exam Neck: Present normal inspection Respiratory: Present CTA bilaterally; Absent rhonchi, wheezes or crackles Cardiac: Present Reg Rate and Rhythm and Regular Rate GI: Present soft and normal bowel sounds Rectal (female): Present deferred (female): Present deferred Comment:: Right hip painful to touch. Legs equal length. Incision clean dry and intact. Skin: Present intact and warm Assessment and Plan *Assessment and plan (1) Closed displaced fracture of right femoral neck: Problem Comment: Status post hemiarthroplasty Status: Acute Category: Medical Code(s): S72.001A - Fracture of unspecified part of neck of right femur, initial encounter for closed fracture (2) Advanced dementia: Status: Acute Qualifiers: Dementia type: Alzheimer's Alzheimer's disease onset: late onset Dementia behavioral or psychological symptom: without behavioral, psychotic, or mood disturbance or anxiety Qualified Code(s): G30.1 - Alzheimer's disease with late onset; F02.C0 - Dementia in other diseases classified elsewhere, severe, without behavioral disturbance, psychotic disturbance, mood disturbance, and anxiety Category: Medical Code(s): F03.C0 - Unspecified dementia, severe, without behavioral disturbance, psychotic disturbance, mood disturbance, and anxiety (3) UTI (urinary tract infection): Status: Acute Qualifiers: Urinary tract infection type: acute cystitis Hematuria presence: without hematuria Qualified Code(s): N30.00 - Acute cystitis without hematuria Category: Medical Code(s): N39.0 - Urinary tract infection, site not specified (4) Chronic anticoagulation: Status: Chronic Category: Medical Code(s): Z79.01 - bed bug exterminator (current) use of anticoagulants (5) Pulmonary embolus: Status: Chronic Category: Medical Code(s): I26.99 - Other pulmonary embolism without acute cor pulmonale Plan This is a 77-year-old female with advanced dementia who normally ambulates with a walker. She fell at home and she was brought to the ED for right hip pain. A previous left hip fracture with repair is noted. She has a history of pulmonary embolus and is chronically anticoagulated with Eliquis and her last dose was Saturday, August 19, 2023. Status post surgery 08/22. Tolerated well. Patient comfortable. Continues to require inpatient management. Will likely need placement after therapy eval. Problems addressed as follows: Closed displaced fracture of right femoral neck Orthopedic consultation; discussed case this morning, tolerated surgery well. Therapy evaluating, would benefit from placement. Case management assisting with placement. Weightbearing as tolerated Continue Tylenol as needed every 6 hours 1000 mg and morphine 2 mg IV every 4 hours as needed. Monitoring for toxicity. Advanced dementia Fall precautions Routine nursing interaction Consent from family for surgery noted UTI Urine growing 2 strains of E. coli. Sensitive to ceftriaxone. Continue ceftriaxone 1 g daily, today is day 5 of antibiotics, will treat while admitted. Will not need any further treatment after discharge -White cell count remains elevated at 18, hemoglobin 13.. Repeat CBC, CMP, magnesium ordered for the morning -Kidney function normal with BUN 10, creatinine 0.5. pulmonary embolus on Eliquis at home: -Resume Eliquis today. Stable on 2 L oxygen, wean as tolerated. PPX eliquis CODE STATUS DNR FEN Cardiac
--- NOTE | 2023-08-24 18:00 | PC.NURSE ---
pleasantly confused t/o shift. appears confortable. whitley cath removed this shift.
[2023-08-24 20:00] VITALS: BP 109/65; PULSE 104; RESP 16; TEMP 37.5; O2SAT 96; O2SAT 97
[2023-08-24] MEDS: SENNOSIDES 8.6MG/DOCUSATE 50MG TABLET 1 TAB PO (20:30)
[2023-08-25] VITALS: BP 106/56; PULSE 108; RESP 16; TEMP 37; O2SAT 94
[2023-08-25 00:53] VITALS: TEMP 38
[2023-08-25] MEDS: ACETAMINOPHEN 500MG TAB 1000 MG PO (00:54)
--- NOTE | 2023-08-25 00:58 | PC.NURSE ---
Patient's cheeks flushed. Feels warm. Temp 100.4 oral. Patient has been coughing with oral fluids at pill pass earlier. Has mild rhonchi on right side . 02 sat 96% on 2 lnc. Thad Cuevas APRN noyified. Instructed to give Tylenol. May need cxray tomorrow. Received Tylenol 1000mg crushed and in applesauce.
[2023-08-25 04:00] VITALS: BP 110/55; PULSE 88; RESP 16; TEMP 37; O2SAT 97; BMI 27.5
[2023-08-25 06:27] LABS: Basophils % 0.2 % (0.1-2.0); Eosinophils # 0.1 K/mm3 (0.0-0.4); Eosinophils % 0.7 % (0.1-12.0); Hematocrit 30.6 % (37.0-47.0); Hemoglobin 11.9 g/dL (12.2-16.2); Lymphocytes # 1.7 K/mm3 (0.7-4.5); Lymphocytes % 10.7 % (10-50); Mean Corpuscular HGB Conc 38.8 g/dL (31.8-35.4); Mean Corpuscular Hemoglobin 36.6 pg (27.0-31.2); Mean Corpuscular Volume 94.3 fl (81-99); Mean Platelet Volume 8.7 fl (7.4-10.4); Monocytes % 6.4 % (1.7-9.3); Neutrophils # 13.1 K/mm3 (1.8-7.8); Platelet Count 199 K/mm3 (142-424); Red Blood Count 3.25 M/mm3 (4.20-5.40); Red Cell Distribution Width 14.6 % (11.5-17.5); White Blood Count 15.9 K/mm3 (4.8-10.8)
--- NOTE | 2023-08-25 06:31 | PC.NURSE ---
PATIENTS IV WAS OUT ON DAYSHIFT. IV ACCESS WAS NOT OBTAINED. 2 ATTEMPTS TO RESTART IV BY THIS NURSE. CHARGE NURSE NOTIFIED THAT ULTRA SOUND GUIDED IV NEEDED. URINE IS MARICARMEN. PATIENT'S PO INTAKE POOR. COUGHING NOTED ON DRINKING FLUIDS.
[2023-08-25 07:27] LABS: Alanine Aminotransferase 46 U/L (12-78); Albumin Level 2.3 g/dl (3.5-5.0); Alkaline Phosphatase 152 U/L (38-126); Anion Gap 4.9 mEq/L (5-15); Aspartate Amino Transferase 31 U/L (14-36); Blood Urea Nitrogen 15 mg/dl (7-17); Calcium 8.3 mg/dl (8.4-10.2); Carbon Dioxide 31 mmol/L (22.0-30.0); Chloride 102 mmol/L (98-107); Creatinine Clearance Estimated 60 mL/min (50-200); Estimated Glomerular Filt Rate 97 ml/min (>60); GFR (African American) 118 ML/MIN (>60); Globulin 2.4 g/dL (1.3-3.2); Glucose 118 mg/dl (74-100); MANUAL DIFFERENTIAL MANUAL DIFFERENTIAL (MANUAL DIFF); Sodium 135 mmol/L (136-145); Total Protein,Serum 4.7 g/dl (6.3-8.2)
[2023-08-25 07:37] LABS: Potassium 2.9 mmoL/L (3.5-5.1)
[2023-08-25 08:00] VITALS: BP 104/62; PULSE 90; RESP 18; TEMP 36.4; O2SAT 94
--- NOTE | 2023-08-25 08:02 | EXP.DC.SUM ---
General Admission date:: 08/20/23 Discharge date: 08/25/23 HPI HPI HPI: This is a 77-year-old female that presents to [facility] emergency department after falling at home and now with right hip pain. She is accompanied by her son Dimitrios. Dimitrios reports the patient has advanced dementia and lives in their home. She typically ambulates with a walker and describes previous left hip fracture. She is chronically on Eliquis for pulmonary embolus. He reports the patient was ambulating in her room without her walker and fell with identified right hip concerns. In the ED hip x-rays identified right hip fracture with subsequent CT of the pelvis performed. Her labs identified a leukocytosis and her urinalysis was abnormal. She was started on IV Rocephin. Orthopedics consulted for definitive treatment of right hip fracture. Hospital Course Hospital Course Hospital Course: This is a 77-year-old female with advanced dementia who normally ambulates with a walker. She fell at home and she was brought to the ED for right hip pain. A previous left hip fracture with repair is noted. She has a history of pulmonary embolus and is chronically anticoagulated with Eliquis and her last dose was Saturday, August 19, 2023. Status post surgery 08/22. Tolerated well. Patient comfortable. Meeting criteria for placement for therapy. Problems addressed as follows: Closed displaced fracture of right femoral neck Orthopedic consultation; Evaluated patient, taken for hemiarthroplasty on 08/23/23. Tolerated procedure well. Ortho recommends WBAT to RLE with PHP in place at all times. Ice to incision site PRN pain Pain control. Elevation as tolerated. Continue Tylenol as needed every 6 hours 1000 mg and hydrocodone 5mg as needed for q6h for severe pain, no doses needed in past 24hrs. Therapy evaluated during admission. accepted to [place] for rehab. Advanced dementia At baseline mentation, complicates her care. Compliant with therapy and nursing care. Pleasant, no behavioral disturbances UTI Urine growing 2 strains of E. coli. Sensitive to ceftriaxone. Completed course during admission. White cell count improving at 15.9 on day of discharge. Afebrile. recommend repeat labs with CBC, CMP, Mg in 1 week. Kidney function normal with BUN 150, creatinine 0.6. pulmonary embolus on Eliquis at home: -On 2 L NC continuous. Resumed Eliquis the day after surgery. continue indefinitely. Hgb stable at 12. DNR during admission. Spent 35minutes on discharge counseling, documentation, evaluation of patient. Exam Data for Last 24 hours Vital signs and Labs for Last 24 Hours: Temp Pulse Resp BP Pulse Ox O2 Del Method O2 Flow Rate 98.6 F 88 16 110/55 L 97 Nasal Cannula 2 08/25/23 04:00 08/25/23 04:00 08/25/23 04:00 08/25/23 04:00 08/25/23 04:00 08/25/23 05:00 08/25/23 05:00 FiO2 28 08/22/23 20:05 Laboratory Results - last 24 hr 08/24/23 06:48: Total Counted 100, Neutrophils % (Manual) 86 H, Lymphocytes % (Manual) 4 L, Monocytes % (Manual) 10 H, Platelet Estimate Normal, RBC Morphology Normal, Sodium 135 L, Potassium 3.3 L, Chloride 105, Carbon Dioxide 28, Anion Gap 5.3, BUN 10, Creatinine 0.50 L D, Estimated Creat Clear 60, Estimated GFR 120, Est GFR ( Amer) 146 D, Glucose 139 H, Calcium 8.1 L, Magnesium 1.7, Total Bilirubin 1.0, AST 38 H D, ALT 59 D, Alkaline Phosphatase 147 H, Total Protein 5.2 L, Albumin 2.5 L D, Globulin 2.7, Albumin/Globulin Ratio 0.9 L 08/25/23 05:58: WBC 15.9 H, RBC 3.25 L, Hgb 11.9 L, Hct 30.6 L, MCV 94.3, MCH 36.6 H, MCHC 38.8 H, RDW 14.6, Plt Count 199, MPV 8.7, Neut % (Auto) 82.0 H, Lymph % (Auto) 10.7, [place] % (Auto) 6.4, Eos % (Auto) 0.7, Baso % (Auto) 0.2, Neut # (Auto) 13.1 H, Lymph # (Auto) 1.7, [place] # (Auto) 1.0, Eos # (Auto) 0.1, Baso # (Auto) 0.0, Sodium 135 L, Potassium 2.9 L*, Chloride 102, Carbon Dioxide 31 H, Anion Gap 4.9 L, BUN 15 D, Creatinine 0.60, Estimated Creat Clear 60, Estimated GFR 97, Est GFR ( Amer) 118, Glucose 118 H, Calcium 8.3 L, Total Bilirubin 1.0, AST 31, ALT 46, Alkaline Phosphatase 152 H, Total Protein 4.7 L, Albumin 2.3 L, Globulin 2.4, Albumin/Globulin Ratio 1.0 L I & O for Last 24 hours: Intake & Output 08/22/23 08/23/23 08/24/23 08/25/23 23:59 23:59 23:59 23:59 Intake Total 2345 / 2345 2500 / 2620 1167 / 1367 200 / 200 Output Total 975 / 975 900 / 900 500 / 500 250 / 250 Balance 1370 / 1370 1600 / 1720 667 / 867 -50 / -50 Weight 72 kg 72 kg 78.273 kg 77.678 kg Constitutional Constitutional: no acute distress, chronically ill appearing and cooperative *Routine HEENT Exam Head: Present normocephalic Eye: Present EOMI and PERRL ENT: Present mucous membranes moist Comments: poor dentition *Routine Neck Exam Neck: Present supple; Absent lymphadenopathy *Routine Respiratory Exam Respiratory: Present CTA bilaterally; Absent respiratory distress, rhonchi, wheezes or crackles *Routine Cardiovascular Exam Cardiovascular: Present RRR *Routine Abdominal Exam Abdominal: Present soft and normoactive bowel sounds; Absent tenderness *Routine Rectal Exam Patient deferred: visual exam *Routine Exam Patient deferred: external exam *Routine Extremities Exam Extremities: Absent cyanosis, clubbing or edema *Routine Skin Exam Skin: Present warm; Absent rash *Routine Neurological Exam Neurological: Present alert and moving all extremities Comments: baseline mentation, pleasant Results Data Completed and Pending Labs on day of discharge: Labs from last 24 hours 08/25/23 08/24/23 05:58 06:48 WBC 15.9 H RBC 3.25 L Hgb 11.9 L Hct 30.6 L MCV 94.3 MCH 36.6 H MCHC 38.8 H RDW 14.6 Plt Count 199 MPV 8.7 Neut % (Auto) 82.0 H Lymph % (Auto) 10.7 [place] % (Auto) 6.4 Eos % (Auto) 0.7 Baso % (Auto) 0.2 Neut # (Auto) 13.1 H Lymph # (Auto) 1.7 [place] # (Auto) 1.0 Eos # (Auto) 0.1 Baso # (Auto) 0.0 Total Counted 100 Neutrophils % (Manual) 86 H Lymphocytes % (Manual) 4 L Monocytes % (Manual) 10 H Platelet Estimate Normal RBC Morphology Normal Sodium 135 L 135 L Potassium 2.9 L* 3.3 L Chloride 102 105 Carbon Dioxide 31 H 28 Anion Gap 4.9 L 5.3 BUN 15 D 10 Creatinine 0.60 0.50 L D Estimated Creat Clear 60 60 Estimated GFR 97 120 Est GFR ( Amer) 118 146 D Glucose 118 H 139 H Calcium 8.3 L 8.1 L Magnesium 1.7 Total Bilirubin 1.0 1.0 AST 31 38 H D ALT 46 59 D Alkaline Phosphatase 152 H 147 H Total Protein 4.7 L 5.2 L Albumin 2.3 L 2.5 L D Globulin 2.4 2.7 Albumin/Globulin Ratio 1.0 L 0.9 L DS: Diagnosis Discharge Diagnosis (1) Closed displaced fracture of right femoral neck: Status: Acute Code(s): S72.001A - Fracture of unspecified part of neck of right femur, initial encounter for closed fracture Problem details: Status post hemiarthroplasty (2) Advanced dementia: Status: Acute Code(s): F03.C0 - Unspecified dementia, severe, without behavioral disturbance, psychotic disturbance, mood disturbance, and anxiety Qualifiers: Alzheimer's disease onset: late onset Dementia behavioral or psychological symptom: without behavioral, psychotic, or mood disturbance or anxiety Dementia type: Alzheimer's Qualified Code(s): G30.1 - Alzheimer's disease with late onset; F02.C0 - Dementia in other diseases classified elsewhere, severe, without behavioral disturbance, psychotic disturbance, mood disturbance, and anxiety (3) UTI (urinary tract infection): Status: Acute Code(s): N39.0 - Urinary tract infection, site not specified Qualifiers: Hematuria presence: without hematuria Urinary tract infection type: acute cystitis Qualified Code(s): N30.00 - Acute cystitis without hematuria (4) Chronic anticoagulation: Status: Chronic Code(s): Z79.01 - intermediate (current) use of anticoagulants (5) Pulmonary embolus: Status: Chronic Code(s): I26.99 - Other pulmonary embolism without acute cor pulmonale Meds Home Medications and Allergies Home Medications Medication Instructions Recorded Confirmed Type acetaminophen 500 mg tablet 1,000 mg (2 x 500 mg) PO Q6HP PRN 08/25/23 Rx Fever Or Mild Pain (1-3) 30 days #60 tabs apixaban 5 mg tablet (Eliquis) 5 mg PO BID 30 days #60 tabs 08/25/23 Rx furosemide 40 mg tablet 40 mg PO DAILY 30 days #30 tabs 08/25/23 Rx hydrocodone 5 mg-acetaminophen 325 1 tab PO Q6HP PRN Moderate To 08/25/23 Rx mg tablet Severe Pain (4-10) 3 days #12 tabs lansoprazole 30 mg capsule,delayed 30 mg PO AM 30 days #30 caps 08/25/23 Rx release magnesium oxide 400 mg (241.3 mg 400 mg PO DAILY 30 days #30 tabs 08/25/23 Rx magnesium) tablet mirtazapine 15 mg tablet 15 mg PO HS 30 days #30 tabs 08/25/23 Rx potassium chloride 20 mEq 20 meq PO DAILY 30 days #30 tabs 08/25/23 Rx tablet,extended release(part/cryst) sennosides 8.6 mg-docusate sodium 1 tab PO DAILY PRN constipation 30 08/25/23 Rx 50 mg tablet (Stimulant Laxative days #30 tabs Plus) spironolactone 25 mg tablet 25 mg PO DAILY 30 days #30 tabs 08/25/23 Rx New Prescriptions to Start Prescriptions: [facility] apixaban [Eliquis] Tay,Gaston furosemide [place] [facility] hydrocodone-acetaminophen Tay,[place]aston lansoprazole [place] [facility] magnesium oxide [place] mirtazapine Tay,[place]aston potassium chloride aTy,Gaston sennosides-docusate sodium [Stimulant Laxative Plus] [place] Cross spironolactone [place] [facility] Allergies Allergy/AdvReac Type Severity Reaction Status Date / Time Penicillins Allergy Verified 08/20/23 15:41 Discharge Plan Disposition Patient Disposition: [facility] Condition: Fair Discharge Order Discharge Orders: Discharge Order (Routine); Ordered 08/25/23 Ordered By: Gaston Cross Follow up Plan Follow up with: Jos Phillips DO [Staff Physician] - 09/06/23 9:30 am Prescriptions/Medication Reconciliation: New hydrocodone-acetaminophen 5-325 mg Tablet 1 tab PO Q6HP PRN (Reason: Moderate To Severe Pain (4-10)) 3 Days Qty: 12 0RF magnesium oxide 400 mg (241.3 mg magnesium) Tablet 400 mg PO DAILY 30 Days Qty: 30 0RF sennosides-docusate sodium [Stimulant Laxative Plus] 8.6-50 mg Tablet 1 tab PO DAILY PRN (Reason: constipation) 30 Days Qty: 30 0RF acetaminophen 500 mg Tablet 1,000 mg PO Q6HP PRN (Reason: Fever Or Mild Pain (1-3)) 30 Days Qty: 60 0RF Continued furosemide 40 mg tablet 40 mg PO DAILY 30 Days Qty: 30 0RF spironolactone 25 mg tablet 25 mg PO DAILY 30 Days Qty: 30 0RF potassium chloride 20 mEq tablet,ER particles/crystals 20 meq PO DAILY 30 Days Qty: 30 0RF lansoprazole 30 mg capsule,delayed release(DR/EC) 30 mg PO AM 30 Days Qty: 30 0RF mirtazapine 15 mg tablet 15 mg PO HS 30 Days Qty: 30 0RF Patient Comments: TAKE 1 TABLET BY MOUTH ONCE DAILY FOR 30 DAYS Eliquis 5 mg tablet 5 mg PO BID 30 Days Qty: 60 0RF Problem Reconciliation Problems Reviewed?: Yes Patient Discharge Instructions ACTIVITY: Ambulate as tolerated and Up with assistance DIET: continue same diet Patient Instructions: DI for Hip Fracture, DI for Hip Replacement, DI for Urinary Tract Infection (UTI), DI for Surgical Site Infection, Catheter-associated Urinary Tract Infection Providers Primary Care Provider: Lonnie Joyner Admit Provider: Rigoberto Galo Attending Provider: Rigoberto Galo
[2023-08-25 08:57] LABS: Magnesium 1.9 mg/dl (1.6-2.3)
--- NOTE | 2023-08-25 08:57 | P.PN_ITS ---
Subjective Narrative: Patient ROS limited 2/2 dementia, resting comfortably. No acute signs of distress. No overnight events. Exam Data for Last 24 hours Vital signs and Labs for Last 24 Hours: Temp Pulse Resp BP Pulse Ox O2 Del Method O2 Flow Rate 98.6 F 88 16 110/55 L 97 Nasal Cannula 2 08/25/23 04:00 08/25/23 04:00 08/25/23 04:00 08/25/23 04:00 08/25/23 04:00 08/25/23 05:00 08/25/23 05:00 FiO2 28 08/22/23 20:05 Laboratory Results - last 24 hr 08/24/23 06:48: Total Counted 100, Neutrophils % (Manual) 86 H, Lymphocytes % (Manual) 4 L, Monocytes % (Manual) 10 H, Platelet Estimate Normal, RBC Morphology Normal 08/25/23 05:58: WBC 15.9 H, RBC 3.25 L, Hgb 11.9 L, Hct 30.6 L, MCV 94.3, MCH 36.6 H, MCHC 38.8 H, RDW 14.6, Plt Count 199, MPV 8.7, Neut % (Auto) 82.0 H, Lymph % (Auto) 10.7, [place] % (Auto) 6.4, Eos % (Auto) 0.7, Baso % (Auto) 0.2, Neut # (Auto) 13.1 H, Lymph # (Auto) 1.7, [place] # (Auto) 1.0, Eos # (Auto) 0.1, Baso # (Auto) 0.0, Sodium 135 L, Potassium 2.9 L*, Chloride 102, Carbon Dioxide 31 H, Anion Gap 4.9 L, BUN 15 D, Creatinine 0.60, Estimated Creat Clear 60, Estimated GFR 97, Est GFR ( Amer) 118, Glucose 118 H, Calcium 8.3 L, Total Bilirubin 1.0, AST 31, ALT 46, Alkaline Phosphatase 152 H, Total Protein 4.7 L, Albumin 2.3 L, Globulin 2.4, Albumin/Globulin Ratio 1.0 L I & O for Last 24 hours: Intake & Output 08/22/23 08/23/23 08/24/23 08/25/23 23:59 23:59 23:59 23:59 Intake Total 2345 / 2345 2500 / 2620 1167 / 1367 200 / 200 Output Total 975 / 975 900 / 900 500 / 500 250 / 250 Balance 1370 / 1370 1600 / 1720 667 / 867 -50 / -50 Weight 72 kg 72 kg 78.273 kg 77.678 kg Detailed Lower Extremity Exam Comments: R hip: Dressing changed with gauze and tape. Incision C/D/I with chelita. No signs of active drainage, infection, ecchymosis. +edema. NVI distally with +2 DP, SILT 1st DWS/PA, +motor EHL/FHL/GS/TA. THigh and calves Soft, compressible. Progress Note: A&P Assessment and plan (1) Closed displaced fracture of right femoral neck: Problem details: Status post hemiarthroplasty Status: Acute Assessment and plan: WBAT to RLE with PHP in place at all times. Ice to incision site PRN pain Pain control Elevation as tolerated. Hgb stable. Consider repleting potassium per primary team. Further care per medical team, thank you for this consult. (2) Advanced dementia: Status: Acute (3) UTI (urinary tract infection): Status: Acute (4) Chronic anticoagulation: Status: Chronic (5) Pulmonary embolus: Status: Chronic
[2023-08-25 09:39] LABS: Lymphocytes % 9 % (10-50); Monocytes % 6 % (2-9); Neutrophils % 85 % (42-76); Total Cells Counted 100
[2023-08-25 09:40] LABS: Platelet Estimate Normal; RBC Morphology Normal
[2023-08-25] MEDS: POTASSIUM CHLORIDE 20MEQ TAB 20 MEQ PO ×2 (09:41→14:07)
[2023-08-25] MEDS: FUROSEMIDE 40 MG TABLET PO (09:41)
[2023-08-25] MEDS: cefTRIAXone 1GM VIAL 1 GM IM (09:41)
[2023-08-25] MEDS: PANTOPRAZOLE 40MG TABLET 40 MG PO (09:41)
[2023-08-25] MEDS: APIXABAN 5MG TABLET 5 MG PO (09:41)
[2023-08-25] MEDS: SENNOSIDES 8.6MG/DOCUSATE 50MG TABLET 1 TAB PO (09:43)
[2023-08-25] MEDS: MAGNESIUM OXIDE 400MG TABLET 400 MG PO (11:25)
--- NOTE | 2023-08-25 12:24 | PC.NURSE ---
report given to retirement at this time
--- NOTE | 2023-08-25 12:33 | PC.NURSE ---
called pt's son and asked if someone could come up to clinic pharmacy and pay for her scripts. Son stated that he would be on his way.
== END 2023-08-25 16:37 | DRG 522 ==
LOC: ER 15:24 → 2ND 15:37
PROVIDERS: Internal Medicine; Internal Medicine Adolescent Medicine; Orthopaedic Surgery; Physician Assistant; Admitting Provider Family Medicine; Emergency Provider Student in an Organized Health Care Education/Training Program; PCP Family Medicine; Visit Provider Family Medicine
PROC: 0SR903A Replacement of Right Hip Joint with Ceramic Synthetic Substitute, Uncemented, Open Approach (ICD-10-PCS; principal; 2023-08-23 12:00)
DX: S72.001A Fracture of unspecified part of neck of right femur, initial encounter for closed fracture (principal); N39.0 Urinary tract infection, site not specified; G30.1 Alzheimer's disease with late onset; F02.C0 Dementia in other diseases classified elsewhere, severe, without behavioral disturbance, psychotic disturbance, mood disturbance, and anxiety; Z79.01 Long term (current) use of anticoagulants; Z79.899 Other long term (current) drug therapy; W01.0XXA Fall on same level from slipping, tripping and stumbling without subsequent striking against object, initial encounter; Y92.019 Unspecified place in single-family (private) house as the place of occurrence of the external cause; Z86.711 Personal history of pulmonary embolism; B96.20 Unspecified Escherichia coli [E. coli] as the cause of diseases classified elsewhere
CPT/HCPCS: 27236; 36415; 71045; 72170; 72192; 73502; 73552; 80048; 80053; 81001; 82550; 83735; 84145; 85007; 85025; 85027; 85610; 85730; 87086; 87088; 87186; 93005; 97163; 97167; 97530; 99285; C1776; J0131; J0696; J1644; J1650; J1885; J2270; J2405; J3010; J3480; J7120

== ENCOUNTER 2023-09-07 10:13 | Outpatient (CLI) | payer MEDICARE, SELFPAY ==
--- NOTE | 2023-09-07 10:17 | XR_ITS ---
FINAL REPORT CLINICAL HISTORY: hip fracture COMPARISON: 08/23/2023 FINDINGS: RIGHT HIP Two views of the right hip demonstrate a right total hip arthroplasty. No change in positioning of the prosthetic device is seen when compared to the prior film. The joint spaces appear normal. The visualized bony structures are well aligned. No soft tissue abnormality is seen. IMPRESSION: Right total hip arthroplasty stable in appearance without acute bony abnormality. Reviewed, Interpreted and Dictated by hSaka Argueta MD Transcribed by Coty Trimble Authenticated and [facility]
== END 2023-09-07 23:59 | disposition home or self-care (01) ==
LOC: RAD 10:14
PROVIDERS: PCP Family Medicine; Visit Provider Physician Assistant Surgical
DX: S72.001A Fracture of unspecified part of neck of right femur, initial encounter for closed fracture (principal); M25.551 Pain in right hip
CPT/HCPCS: 73502

== ENCOUNTER 2023-10-10 11:21 | Outpatient (CLI) | payer MEDICARE, SELFPAY ==
--- NOTE | 2023-10-10 11:25 | XR_ITS ---
FINAL REPORT CLINICAL HISTORY: Rt Hip pain COMPARISON: None FINDINGS: RIGHT HIP Two views of the right hip demonstrate no acute fracture or dislocation. The patient has undergone a right total hip arthroplasty as well as ORIF of the left proximal femur. 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 There is severe lower lumbar degenerative change present. There are chronic appearing left inferior and superior pubic rami fractures. No soft tissue abnormality is seen. IMPRESSION: Right total hip arthroplasty, as well as ORIF of the left proximal femur have been performed. 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 Severe lower lumbar degenerative change, with chronic appearing left inferior and superior pubic rami fractures. Reviewed, Interpreted and Dictated by Akash Nieves III, MD Transcribed by Coty Trimble Authenticated and . [facility]
== END 2023-10-10 23:59 | disposition home or self-care (01) ==
LOC: RAD 11:23
PROVIDERS: PCP Family Medicine; Visit Provider Physician Assistant Surgical
DX: S72.001A Fracture of unspecified part of neck of right femur, initial encounter for closed fracture (principal)
CPT/HCPCS: 73502